=== PATIENT | male | born 1960 | race African-American/Black ===

== ENCOUNTER → 2016-08-26 | Outpatient (CLI) | payer MEDICAID ==
[2016-02-07 23:14] VITALS: BP 153/90
--- NOTE | 2016-08-26 13:08 | RAD ---
History: Left hip pain and frequent falls Study: AP pelvis and frog-leg left hip. Comparison: June 2013 Findings: There is no significant interval change. There is no fracture or dislocation of the hip. T he pubic rami are intact. There is mild hip joint space narrowing and hypertrophy of the collar of t he left femoral neck Impression: Unchanged osteoarthritis, no evidence for fracture Reported By:
== END ==
LOC: RAD 11:52
PROVIDERS: ATTEND Internal Medicine
DX: M25.552 Pain in left hip (principal); M16.12 Unilateral primary osteoarthritis, left hip
CPT/HCPCS: 73501

== ENCOUNTER 2016-10-28 09:04 | Day surgery (SDC) | payer MEDICAID ==
--- NOTE | 2016-10-28 09:40 | DR.UPDATE ---
H&P Update History and Physical Update: History and Physical reviewed and patient examined. Changes noted: NO Yes with the following:Agree with Dr Mcneill's H&P. will perform left hip joint injection. R/B/O discussed with patient and agrees to proceed with hip injection.
[2016-10-28] MEDS: KENALOG INJ 40 MG ONE ×2 (09:45→09:54)
[2016-10-28] MEDS: MARCAINE/EPINEPHRINE ONE ×2 (09:45→09:54)
[2016-10-28] MEDS: XYLOCAINE 1 % (PLAIN) ONE ×2 (09:46→09:54)
[2016-10-28 10:28] VITALS: BP 161/96
== END 2016-10-28 10:28 | disposition home or self-care (01) ==
LOC: SURG1 09:04
PROVIDERS: ATTEND Specialist
PROC: 3E0U33Z Introduction of Anti-inflammatory into Joints, Percutaneous Approach (ICD-10-PCS; 2016-10-28)
PROC: BQ11ZZZ Fluoroscopy of Left Hip (ICD-10-PCS; 2016-10-28)
PROC: 3E0U3BZ Introduction of Anesthetic Agent into Joints, Percutaneous Approach (ICD-10-PCS; principal; 2016-10-28 09:00)
DX: M16.12 Unilateral primary osteoarthritis, left hip (principal)
CPT/HCPCS: 20610; 76000; 77002; A4222; S0020; J2001; J3301

== ENCOUNTER 2016-12-16 11:21 | Day surgery (SDC) | payer MEDICAID ==
[2016-12-16] MEDS ORDERED: KENALOG INJ 40 MG ONE (12:05)
[2016-12-16] MEDS ORDERED: MARCAINE/EPINEPHRINE ONE (12:05)
[2016-12-16] MEDS ORDERED: XYLOCAINE 2 % (PLAIN) ONE (12:05)
--- NOTE | 2016-12-16 12:11 | DR.UPDATE ---
H&P Update History and Physical Update: History and Physical reviewed and patient examined. Yes with the following:Pt presents today s/p l hip injection x 3wks ago with excellent pain relief. Now here for same. Will repeat. See office note for full h&p
[2016-12-16 12:39] VITALS: BP 152/84
== END 2016-12-16 12:32 | disposition home or self-care (01) | DRG 554 ==
LOC: SURG1 11:21
PROVIDERS: ATTEND Specialist
PROC: 3E0U33Z Introduction of Anti-inflammatory into Joints, Percutaneous Approach (ICD-10-PCS; 2016-12-16)
PROC: BQ11ZZZ Fluoroscopy of Left Hip (ICD-10-PCS; 2016-12-16)
PROC: 3E0U3BZ Introduction of Anesthetic Agent into Joints, Percutaneous Approach (ICD-10-PCS; principal; 2016-12-16 12:45)
DX: M16.12 Unilateral primary osteoarthritis, left hip (principal)
CPT/HCPCS: 20610; 77002; S0020; J2001; J3301

== ENCOUNTER 2017-02-24 10:17 | Day surgery (SDC) | payer MEDICAID ==
[2017-02-24] MEDS ORDERED: XYLOCAINE-MPF 1% ONE (10:56)
--- NOTE | 2017-02-24 10:56 | DR.UPDATE ---
H&P Update History and Physical Update: History and Physical reviewed and patient examined. Changes noted: NO Yes with the following:Agree with H&P from Dr Mcneill. will proceed with steroid injection of left hip
[2017-02-24] MEDS ORDERED: KENALOG INJ 40 MG IM ONE (10:57)
[2017-02-24] MEDS ORDERED: MARCAINE 0.5% ONE (10:57)
[2017-02-24 14:35] VITALS: BP 151/95
== END 2017-02-24 11:24 | disposition home or self-care (01) ==
LOC: SURG1 10:17
PROVIDERS: ATTEND Specialist
PROC: 3E0R3BZ Introduction of Anesthetic Agent into Spinal Canal, Percutaneous Approach (ICD-10-PCS; 2017-02-24)
PROC: 3E0R33Z Introduction of Anti-inflammatory into Spinal Canal, Percutaneous Approach (ICD-10-PCS; principal; 2017-02-24 12:00)
DX: M16.12 Unilateral primary osteoarthritis, left hip (principal)
CPT/HCPCS: 76000; S0020; J3301

== ENCOUNTER → 2017-03-14 | Outpatient (CLI) | payer MEDICAID ==
[2017-02-24 14:35] VITALS: BP 151/95
--- NOTE | 2017-03-17 15:02 | RAD ---
HISTORY: Cough, congestion Study: Two views of the chest Comparison: July 05, 2014 Findings: The trachea is midline. The cardiac silhouette is mildly enlarged. Increased perihilar markings and mild bronchial thickening are noted. Hazy opacification within the left lower lobe suggests atelecta sis, infiltrate, and/or effusion. Correlate clinically. IMPRESSION: Mild cardiomegaly. Left basilar airspace disease as noted above. Reported By:
== END | disposition home or self-care (01) ==
LOC: RAD 14:19
PROVIDERS: ATTEND Family Medicine
DX: R91.8 Other nonspecific abnormal finding of lung field (principal); I51.7 Cardiomegaly; J98.4 Other disorders of lung
CPT/HCPCS: 71020

== ENCOUNTER → 2017-05-29 | Outpatient (CLI) | payer MEDICAID ==
--- NOTE | 2017-05-29 20:56 | RAD ---
Examination: Lumbar spine, five views History: Pain in back and hips Findings: Essentially normal curvature, segmentation and alignment. No fracture or subluxation. Disc spaces are preserved. Pedicles and sacroiliac joints are normal. There is contour deformity of the le ft iliac crest consistent with surgical donor site. Impression: No acute or significant lumbar spine findings. Postsurgical changes left ilium. Reported By:
--- NOTE | 2017-05-30 07:19 | RAD ---
Examination: Bilateral hips, two views each History: Low back and bilateral hip pain Comparison 08/26/2016 Findings: Bilateral hip joint space narrowing, left greater than right. Degenerative bone proliferati on at the acetabular margins. No fracture or dislocation identified. There is a surgical defect in th e left iliac crest. Impression: Bilateral hip osteoarthritis, this process somewhat more advanced in the left hip than th e right. No acute component demonstrated. Reported By:
== END ==
LOC: RAD 15:54
PROVIDERS: ATTEND Specialist
DX: M54.89 Other dorsalgia (principal); M16.0 Bilateral primary osteoarthritis of hip
CPT/HCPCS: 72110; 73521

== ENCOUNTER 2017-06-25 12:02 | Day surgery (SDC) | payer MEDICAID ==
--- NOTE | 2017-06-25 12:53 | DR.UPDATE ---
H&P Update History and Physical Update: History and Physical reviewed and patient examined. Changes noted: NO Yes with the following:Agree with H&P from Dr Mcneill. will perform lumbar shannon with flouroscopic guidance
[2017-06-25] MEDS ORDERED: MARCAINE 0.25% INJ ONE (13:11)
[2017-06-25] MEDS ORDERED: KENALOG INJ 40 MG IM ONE (13:11)
[2017-06-25] MEDS ORDERED: XYLOCAINE 1 % (PLAIN) ONE (13:11)
[2017-06-25 13:44] VITALS: BP 138/82
== END 2017-06-25 13:42 | disposition home or self-care (01) | DRG 552 ==
LOC: SURG1 12:02
PROVIDERS: ATTEND Specialist
PROC: 3E0R3BZ Introduction of Anesthetic Agent into Spinal Canal, Percutaneous Approach (ICD-10-PCS; principal; 2017-06-25 12:45)
PROC: 3E0R33Z Introduction of Anti-inflammatory into Spinal Canal, Percutaneous Approach (ICD-10-PCS; principal; 2017-06-25 12:45)
DX: M48.061 Spinal stenosis, lumbar region without neurogenic claudication (principal)
CPT/HCPCS: 62323; 76000; A4222; S0020; J2001; J3301

== ENCOUNTER → 2017-09-11 | Outpatient (CLI) | payer MEDICAID ==
[2017-09-11 14:35] LABS: BASOPHILS # (AUTO) 0.1 X10^3/uL (0.0-0.1); BASOPHILS % (AUTO) 1.1 % (0.2-1.0); EOSINOPHILS # (AUTO) 0.1 x10^3/uL (0.0-0.2); EOSINOPHILS % (AUTO) 2.1 % (0.9-2.9); HEMATOCRIT 43.2 % (42.0-54.0); HEMOGLOBIN 14.5 g/dL (13.5-18.0); MEAN CORPUSCULAR HEMOGLOBIN 27.8 pg (27.0-34.0); MEAN CORPUSCULAR HGB CONC 33.6 g/dL (33.0-35.0); MEAN CORPUSCULAR VOLUME 82.8 fL (80.0-100.0); MEAN PLATELET VOLUME 10.1 fL (7.4-11.0); MONOCYTES # (AUTO) 0.5 x10^3/uL (0.3-0.8); MONOCYTES % (AUTO) 7.5 % (0.0-13.0); NEUTROPHILS # (AUTO) 2.7 x10^3/uL (2.2-4.8); NEUTROPHILS % (AUTO) 42.3 % (42.0-75.0); PLATELET COUNT 292 X10^3/uL (150.0-450.0); RED BLOOD COUNT 5.22 X10^6/uL (4.7-6.0); RED CELL DISTRIBUTION WIDTH 15.7 % (11.6-16.5); WHITE BLOOD COUNT 6.3 X10^3/uL (3.6-10.0)
[2017-09-11 14:36] LABS: BILIRUBIN,URINE NEGATIVE (NEGATIVE); BLOOD/HEMOGLOBIN,URINE 1+ (NEGATIVE); GLUCOSE, URINE NEGATIVE (NEGATIVE); KETONES,URINE NEGATIVE (NEGATIVE); LEUKOCYTE ESTERASE ,URINE NEGATIVE (NEGATIVE); NITRITES,URINE NEGATIVE (NEGATIVE); PROTEIN,URINE NEGATIVE (NEGATIVE); UROBILINOGEN,URINE NORMAL (NORMAL)
[2017-09-11 14:41] LABS: APPEARANCE,URINE CLEAR (CLEAR); BACTERIA,URINE TRACE /HPF (NEGATIVE); COLOR,URINE YELLOW (YELLOW); SQUAMOUS EPITHELIAL CELL,UR FEW /HPF (NEGATIVE)
[2017-09-11 14:42] LABS: MUCUS,URINE FEW /HPF (NEGATIVE)
[2017-09-11 14:43] LABS: ALANINE AMINOTRANSFERASE 84 Units/L (12-78); ALBUMIN 4.3 g/dL (3.4-5.0); ALKALINE PHOSPHATASE 59 Units/L (46-116); ASPARTATE AMINO TRANSFERASE 54 Units/L (15-37); BLOOD UREA NITROGEN 14 mg/dL (7-18); CALCIUM 9.5 mg/dL (8.5-10.1); CARBON DIOXIDE 28.2 mmol/L (21-32); CHLORIDE 105 mmol/L (98-107); CREATININE 0.78 mg/dL (0.70-1.30); SODIUM 141 mmol/L (136-145); TOTAL PROTEIN 8.1 g/dL (6.4-8.2); eGFR BLACK RACES > 60 (>60); eGFR NON BLACK RACES > 60 (>60)
[2017-09-11 15:12] LABS: ERYTHROCYTE SEDIMENTATION RATE 8 MM/HOUR (0-15)
--- NOTE | 2017-09-11 15:16 | RAD ---
HISTORY: Preoperative exam for hip surgery Study: Two views of the chest Comparison: March 14, 2017 Findings: The trachea is midline. The cardiac silhouette is mildly enlarged. The lungs are clear without foca l infiltrate or effusion. IMPRESSION: 1. Mild cardiomegaly. Reported By:
== END ==
LOC: LAB 13:24
PROVIDERS: ATTEND Orthopaedic Surgery
DX: Z01.818 Encounter for other preprocedural examination (principal); Z01.810 Encounter for preprocedural cardiovascular examination; Z01.811 Encounter for preprocedural respiratory examination; Z11.8 Encounter for screening for other infectious and parasitic diseases; Z79.899 Other long term (current) drug therapy; Z79.01 Long term (current) use of anticoagulants; R79.82 Elevated C-reactive protein (CRP); M16.12 Unilateral primary osteoarthritis, left hip
CPT/HCPCS: 36415; 71046; 80053; 81001; 85025; 85610; 85652; 85730; 86140; 86850; 86900; 86901; 87640; 87641; 93005; 93010

== ENCOUNTER 2017-09-15 07:28 | Inpatient (IN) | payer MEDICAID ==
[2017-09-15] MEDS ORDERED: NS 100 ML IV 100 ML IV ONE (07:44)
[2017-09-15] MEDS ORDERED: D5 LR 1000 ML 1,000 ML IV ONE (07:44)
[2017-09-15] MEDS ORDERED: ANCEF VIAL 1 GM ONE (07:45)
[2017-09-15 08:03] VITALS: BMI 29.8
[2017-09-15] MEDS ORDERED: FENTANYL INJ 100 mcg ONE (08:10)
--- NOTE | 2017-09-15 08:24 | RAD ---
Exam: Left hip two views History: 57-year-old male with left hip pain. Comparison: Bilateral hip radiographs 05/29/2017. Findings: AP pelvis and frog-leg lateral view of the left hip were obtained. There is moderate narrowing of the superior aspect of the left hip joint. Marginal osteophyte formati on is noted as well along the acetabular rim. A surgical defect is seen along the left iliac crest. A bone island is identified in the proximal left femur. Radiographic appearance is unchanged dating ba ck to 1014. No acute bony abnormality is seen on this exam. Impression: Moderate degenerative changes are present in the left hip, as described above Reported By:
[2017-09-15] MEDS ORDERED: ADRENALINE CHL INJ ONE ×2 (08:33→11:05)
[2017-09-15] MEDS ORDERED: LR 1000 ML IV 1,000 ML IV ONE ×2 (09:19→14:17)
[2017-09-15] MEDS ORDERED: NS IRRIGATION 3000 ML 3,000 ML with BACITRACIN VIAL 50,000 UNIT, POLYMYXIN B SULFATE 50... IR ONE ×6 (09:30)
[2017-09-15] MEDS ORDERED: NS IRRIGATION 1000 ML 1,000 ML with BACITRACIN VIAL 50,000 UNIT, POLYMYXIN B SULFATE 50... IR ONE ×3 (09:30)
[2017-09-15] MEDS ORDERED: NAROPIN EPIDURAL 0.2% 400 MG, NS 250 ML IV 200 ML EPI PRN ×2 (11:00)
[2017-09-15] MEDS ORDERED: Q PUMP EPI ONE (11:00)
[2017-09-15] MEDS ORDERED: DIPRIVAN VIAL 20 ML ONE (11:05)
[2017-09-15] MEDS ORDERED: MARCAINE 0.25% INJ ONE (11:06)
[2017-09-15] MEDS ORDERED: NS 1000 ML 1,000 ML ONE (11:33)
[2017-09-15] MEDS ORDERED: REGLAN INJ 10 MG VIAL IVP PRN (12:12)
[2017-09-15] MEDS ORDERED: BENADRYL INJ 50 MG VIAL IVP PRN (12:12)
[2017-09-15] MEDS ORDERED: PHENERGAN INJ 25 MG IVP PRN (12:12)
[2017-09-15] MEDS ORDERED: ZOFRAN INJ 4 MG VIAL IVP PRN (12:12)
[2017-09-15] MEDS ORDERED: DILAUDID INJ IVP PRN (12:12)
[2017-09-15] MEDS ORDERED: DIPRIVAN VIAL 40 ML ONE (12:13)
[2017-09-15] MEDS ORDERED: MORPHINE SULFATE PCA 30 MG IV PRN (13:51)
--- NOTE | 2017-09-15 14:43 | RAD ---
History: Postop left hip replacement Study: AP pelvis and cross-table lateral view of the left hip Findings: There is a new total left hip joint prosthesis in good overall position and alignment. Ther e are lateral surgical hima. Impression: Satisfactory postop appearance of the left hip prosthesis Reported By:
[2017-09-15] MEDS: LR 1000 ML IV 1,000 ML IV SCH (15:03)
[2017-09-15] MEDS ORDERED: XYLOCAINE 2 % (PLAIN) ONE (15:09)
[2017-09-15] MEDS ORDERED: EPHEDRINE SULFATE INJ ONE (15:09)
[2017-09-15] MEDS ORDERED: ZOFRAN INJ 4 MG VIAL ONE (15:09)
[2017-09-15] MEDS ORDERED: VERSED ONE (15:09)
[2017-09-15] MEDS ORDERED: DIPRIVAN VIAL ONE (15:09)
--- NOTE | 2017-09-15 16:29 | OR.GENERIC ---
Post-Op Note Generic - Post-Op Note Operative Report: PREOPERATIVE DIAGNOSIS: LEFT hip degenerative arthritis, severe POSTOPERATIVE DIAGNOSIS: LEFT hip degenerative arthritis, severe PROCEDURE PERFORMED: LEFT total hip arthroplasty ANESTHESIA: Epidural BLOOD LOSS: 800 cc. The patient was positioned with the left hip exposed on the pegboard. IMPLANT SPECIFICATION: [place] Accloade femur 3, 127 28 MM, +8 femoral head 52 mm Trident PSL cup E MDM liner 28 mm 48 mm E MDM insert E 20 mm screws 2 GROSS INTRAOPERATIVE FINDINGS: Severe degenerative changes within the femoral head as well as the acetabulum. HISTORY: This is a 57-year-old male with a history of LEFT hip degenerative dysplastic osteoarthritis. he has human immunodeficiency virus. He has tried and failed conservative management. Because of the increased amount of pain as well as severe effect on the activities of daily living and uncontrollable pain with narcotic medication, the patient has elected to undergo the above-named procedure. All risks as well complications were discussed with the patient including but not limited to infection, scar, dislocation, need for further surgery, risk of anesthesia, deep vein thrombosis,fracture, loosening, sciatic nerve injury, neurovascular damage, bleeding, stiffness, persistent pain, limb length discrepancy and implant failure. The patient understood all these risks and was willing to continue further on with the procedure. PROCEDURE:. Patient was brought to the operating room. Spinal epidural was done. patient got appropriate antibiotic. Castro catheter was inserted. patient was positioned with peg board in a RIGHT lateral position. An axillary roll was placed. All the bony prominences were well padded. At this time, the LEFT hip and LEFT lower extremity was then prepped and draped in the usual sterile fashion for this procedure. a posterior approach was then performed. A curvilinear incision placed over the posterior half of trochanter was placed. Dissection carried down through the subcutaneous tissue to expose the TFL and the distal part of the incision. Incision made in the TFL and The G max fibers split along. Charnley retractor applied. Fat pad was elevated with the Ray- Lucy exposing the short external rotators. Inferior and superior sutures with heavy sutures placed in the rotators and the capsule. The short rotators with capsule were taken down with cautery to expose the hip. The hip was dislocated with flexion adduction and internal rotation.as expected severe osteoarthritic changes were seen both on the acetabular as well as femoral side. An neck osteotomy was completed with an oscillating saw. The femoral head was then removed. The acetabulum was exposed after an anterior capsulotomy was done. Retractors were placed anteriorly posteriorly and inferiorly. The floor was identifiable about the deficit. A long-handle knife was used to cut through the remainder of the capsule and remove the labrum around the rim of the acetabulum. With better exposure of the acetabulum , we started reaming the acetabulum. We started with a size #44 and progressively reamed to a size #52. At the size #52 mm reamer, we obtained excellent bony bleeding with good remainder of bone stalk both anteriorly and posteriorly as well as superiorly within the acetabulum. A size 52 mm cup was then implanted with approximately 45 degrees of abduction and 10 to 15 degrees of anteversion dialed in. 2 screws were the placed. At this time, a plastic liner was then inserted for protection. The leg was flexed and abducted and rotated 90 to prepare the femur. A Keller retractor was used to retract the tensor fascia messi and femoral elevator was used to elevate the femur for better exposure and at this time, we began working on the femur. A rongeur was used to lateralize over the greater trochanter. A Box osteotome was used to remove the cancellous portion of the femoral neck. A Charnley awl was then used to cannulate through the proximal femoral canal. A power reamer was then used to ream the lateral aspect of the greater trochanter in order to provide maximal lateralization and prevent varus implantation of our stem. At this time , we began broaching. We started with a size #0 and progressively worked up to a size #3 mm broach. Once the 3 mm broach was inserted in place, it was seated approximately 1 mm above the calcar. A calcar reamer was then placed and the calcar was reamed smoothly. A standard neck as well as a 28 mm plastic head was then placed and a trial reduction was then performed. Once this was performed, the hip was taken to range of motion with external rotation, longitudinal traction as well as flexion and revealed good stability with no impingement or dislocation. At this time, we removed 2 mm broach and proceeded with implanting our polyethylene liner within the acetabulum. This was impacted and placed and checked to assure that it was well seated with no loosening. We copiously irrigated within the canal and then suctioned it dry. At this time, a 2 mm porous proximal collared stem, a femoral component was then impacted in place. The ADM complement was assembled on the back table. The 28 mm +8 neck length cobalt-chrome femoral head was then impacted in place and the Mackay taper assured that this was well fixed . Next, the hip was then reduced within the acetabulum and again we checked range of motion as well as ligamentous stability with gentle traction, external rotation, as well as hip flexion. We were satisfied with components as well as the alignment of the components. Copious irrigation was then used to irrigate the wound. #1 Ethibond was then used to approximate the hip capsule. #1 vicryl in interrupted fashion was used to approximate the vastus lateralis as well as the gluteus medius attachment over the partial gluteus medius attachment which was resected off the greater trochanter. Next, a #1 vicryl was then used to approximate the tensor fascia messi with [id number] closure. A tight closure was performed. Since the patient did have a lot of subcutaneous fat, multiple #2-0 Vicryl sutures were then used to approximate the bed space and then #2-0 Vicryl for the subcutaneous skin. [place] were then used for skin closure. The patients hip was then cleansed. Sterile dressings consisting of were then placed. After the dressing was applied, the patient was extubated safely and transferred to recovery in stable condition. Prognosis is good.
[2017-09-15] MEDS ORDERED: PHENERGAN INJ 25 MG IV PRN (21:20)
[2017-09-15] MEDS: ZOFRAN INJ 4 MG VIAL IVP PRN (21:28)
[2017-09-16] MEDS: LR 1000 ML IV 1,000 ML IV SCH ×3 (02:34→19:54)
[2017-09-16] MEDS: PERCOCET TAB 5/325 MG PO PRN ×5 (04:23→23:33)
[2017-09-16 05:47] LABS: BASOPHILS # (AUTO) 0.1 X10^3/uL (0.0-0.1); BASOPHILS % (AUTO) 0.5 % (0.2-1.0); HEMATOCRIT 33.5 % (42.0-54.0); HEMOGLOBIN 10.9 g/dL (13.5-18.0); LYMPHOCYTES # (AUTO) 1.8 X10^3/uL (1.3-2.9); LYMPHOCYTES % (AUTO) 14.9 % (21.0-51.0); MEAN CORPUSCULAR HEMOGLOBIN 27.4 pg (27.0-34.0); MEAN CORPUSCULAR HGB CONC 32.6 g/dL (33.0-35.0); MEAN CORPUSCULAR VOLUME 84.1 fL (80.0-100.0); MEAN PLATELET VOLUME 10.3 fL (7.4-11.0); MONOCYTES # (AUTO) 0.8 x10^3/uL (0.3-0.8); MONOCYTES % (AUTO) 6.3 % (0.0-13.0); NEUTROPHILS # (AUTO) 9.4 x10^3/uL (2.2-4.8); NEUTROPHILS % (AUTO) 78.3 % (42.0-75.0); PLATELET COUNT 244 X10^3/uL (150.0-450.0); RED BLOOD COUNT 3.98 X10^6/uL (4.7-6.0); RED CELL DISTRIBUTION WIDTH 15.5 % (11.6-16.5)
[2017-09-16 05:58] LABS: BLOOD UREA NITROGEN 7 mg/dL (7-18); CALCIUM 8.6 mg/dL (8.5-10.1); CARBON DIOXIDE 26.5 mmol/L (21-32); CHLORIDE 105 mmol/L (98-107); COR NA(FOR HYPERGLY) 142 mmol/L (136-145); CREATININE 0.77 mg/dL (0.70-1.30); SODIUM 141 mmol/L (136-145); eGFR BLACK RACES > 60 (>60); eGFR NON BLACK RACES > 60 (>60)
[2017-09-16] MEDS ORDERED: COLCRYS TAB 0.6 MG PO PRN (10:02)
[2017-09-16] MEDS ORDERED: HYDROCHLOROTHIAZIDE 12.5 MG CAP PO PRN (10:02)
[2017-09-16] MEDS: VANCOMYCIN HCL 1 GM VIAL 1 GM in D5W 250 ML IV 250 ML IV SCH ×2 (10:30→20:46)
--- NOTE | 2017-09-16 12:54 | PCM.PROG ---
Progress Note - Progress Note for Day of Date: 09/16/17 - Subjective Subjective: IS DAY 1 STATUS POST LEFT TOTAL HIP REPLACEMENT. TODAY, HE IS ALERT AND ORIENTED, LYING IN BED ON MORNING ROUNDS. HE IS NOTED WITH COMPLAINTS OF LEFT HIP PAIN. ON EXAMINATION, HEART IS REGULAR IN RATE AND RHYTHM. BILATERAL LUNGS ARE CLEAR TO AUSCULTATION. ABDOMEN IS ROUND, SOFT, AND NON-TENDER WITH NORMAL BOWEL SOUNDS NOTED IN ALL QUADRANTS. HE IS NOTED WITH A SURGICAL DRESSING TO THE LEFT HIP. NO SIGNS OR SX INFECTION NOTED TO SITE. HIS VITALS THIS MORNING ARE 99.7-85-22-97%-144/68. LABS WERE OBTAINED. WBC IS ELEVATED AT 12.0, RBC 3.98, HGB 10.9, HCT 33.5, GLUCOSE 131. OTHERWISE, HE IS HEMODYNAMICALLY STABLE. CONTINUES TO MONITOR PATIENT AND STARTED HIM ON LOVENOX 40MG SC HS AND VANCOMYCIN 1GM IV Q12H. WE WILL CONTINUE WITH CURRENT PLAN OF CARE AND RESUME HOME MEDICATIONS TODAY. OTHERWISE, WE WILL FOLLOW UP WITH AM LABS AND COTNINUE TO MONITOR PATIENT. - Past Medical Family Social History Past Med/Fam/Surg Hx: No changes since H&P Allergies: Allergies Sulfa (Sulfonamide Antibiotics) [SULFA] Allergy (Verified 06/25/17 12:42) - Review of Systems ROS: No change since H&P - Vital Signs and I&O's Vital Signs: Temperature 99.1 F Pulse Rate [Apical] 80 Pulse Rate 69 Respiratory Rate 19 Blood Pressure [Right Arm] 123/58 Blood Pressure 110/61 O2 Sat by Pulse Oximetry 92 Intake and Output: Intake & Output 09/14/17 09/15/17 09/16/17 09/17/17 11:59 11:59 11:59 11:59 Intake Total 1750 Output Total 7300 1800 Balance -7300 -50 - Physical Exam Oriented: Normal Eyes: Normal Ear: Normal Nose: Normal Throat: Normal Respiratory: Normal Cardiovascular: Normal : Normal Auscultation: Bowel Sounds: Normal Palpation: Normal Tenderness: Normal Skin: Wound (LEFT HIP SURGICAL WOUND ) Musculoskeletal: Left, Hip, Tender, Instability Psychiatric: Normal Mood Description: Calm Speech Pattern: Clear, Appropriate - Laboratory and Diagnostics Result Diagrams: 09/16/17 05:20 09/16/17 05:25 Labs: Laboratory WBC 12.0 X10^3/uL (3.6-10.0) H 09/16/17 05:20 RBC 3.98 X10^6/uL (4.7-6.0) L 09/16/17 05:20 Hgb 10.9 g/dL (13.5-18.0) L 09/16/17 05:20 Hct 33.5 % (42.0-54.0) L 09/16/17 05:20 MCV 84.1 fL (80.0-100.0) 09/16/17 05:20 MCH 27.4 pg (27.0-34.0) 09/16/17 05:20 MCHC 32.6 g/dL (33.0-35.0) L 09/16/17 05:20 RDW 15.5 % (11.6-16.5) 09/16/17 05:20 Plt Count 244 X10^3/uL (150.0-450.0) 09/16/17 05:20 MPV 10.3 fL (7.4-11.0) 09/16/17 05:20 Neut % (Auto) 78.3 % (42.0-75.0) H 09/16/17 05:20 Lymph % (Auto) 14.9 % (21.0-51.0) L 09/16/17 05:20 [place] % (Auto) 6.3 % (0.0-13.0) 09/16/17 05:20 Eos % (Auto) 0.0 % (0.9-2.9) L 09/16/17 05:20 Baso % (Auto) 0.5 % (0.2-1.0) 09/16/17 05:20 Neut # (Auto) 9.4 x10^3/uL (2.2-4.8) H 09/16/17 05:20 Lymph # (Auto) 1.8 X10^3/uL (1.3-2.9) 09/16/17 05:20 [place] # (Auto) 0.8 x10^3/uL (0.3-0.8) 09/16/17 05:20 Eos # (Auto) 0.0 x10^3/uL (0.0-0.2) 09/16/17 05:20 Baso # (Auto) 0.1 X10^3/uL (0.0-0.1) 09/16/17 05:20 Absolute Nucleated RBC 0.0 /100WBC 09/16/17 05:20 Sodium 141 mmol/L (136-145) 09/16/17 05:25 Corrected Sodium 142 mmol/L (136-145) 09/16/17 05:25 Potassium 3.6 mmol/L (3.5-5.1) 09/16/17 05:25 Chloride 105 mmol/L (98-107) 09/16/17 05:25 Carbon Dioxide 26.5 mmol/L (21-32) 09/16/17 05:25 BUN 7 mg/dL (7-18) 09/16/17 05:25 Creatinine 0.77 mg/dL (0.70-1.30) 09/16/17 05:25 Est GFR (MDRD) Af Amer > 60 (>60) 09/16/17 05:25 Est GFR (MDRD) Non-Af > 60 (>60) 09/16/17 05:25 Glucose 131 mg/dL (65-99) H 09/16/17 05:25 Calcium 8.6 mg/dL (8.5-10.1) 09/16/17 05:25 - Plan (1) Status post left hip replacement Status: Acute Plan: PHYSICAL THERAPY, PAIN MANAGEMENT, PROPHYLACTIC ANTIBIOTICS, CONTINUE TO MONITOR
[2017-09-16] MEDS: DOLUTEGRAVIR PO SCH (20:41)
[2017-09-16] MEDS: LAMIVUDI PO SCH (20:41)
[2017-09-16] MEDS: ABACAVIR PO SCH (20:41)
[2017-09-16] MEDS: TRICOR TAB 145 MG PO SCH (20:42)
[2017-09-16] MEDS: NORVASC TAB 10 MG PO SCH (20:43)
[2017-09-16] MEDS: LOVENOX INJ 40 MG SYR SC SCH (20:44)
[2017-09-17 06:00] LABS: BLOOD UREA NITROGEN 8 mg/dL (7-18); CALCIUM 8.8 mg/dL (8.5-10.1); CARBON DIOXIDE 27.5 mmol/L (21-32); CHLORIDE 104 mmol/L (98-107); COR NA(FOR HYPERGLY) 139 mmol/L (136-145); CREATININE 0.76 mg/dL (0.70-1.30); SODIUM 138 mmol/L (136-145); eGFR BLACK RACES > 60 (>60); eGFR NON BLACK RACES > 60 (>60)
[2017-09-17 06:14] LABS: BASOPHILS # (AUTO) 0.1 X10^3/uL (0.0-0.1); BASOPHILS % (AUTO) 0.5 % (0.2-1.0); EOSINOPHILS % (AUTO) 0.1 % (0.9-2.9); HEMATOCRIT 30.5 % (42.0-54.0); HEMOGLOBIN 10.2 g/dL (13.5-18.0); LYMPHOCYTES # (AUTO) 3.3 X10^3/uL (1.3-2.9); LYMPHOCYTES % (AUTO) 26.6 % (21.0-51.0); MEAN CORPUSCULAR HEMOGLOBIN 27.9 pg (27.0-34.0); MEAN CORPUSCULAR HGB CONC 33.5 g/dL (33.0-35.0); MEAN CORPUSCULAR VOLUME 83.4 fL (80.0-100.0); MEAN PLATELET VOLUME 10.7 fL (7.4-11.0); MONOCYTES # (AUTO) 1.3 x10^3/uL (0.3-0.8); MONOCYTES % (AUTO) 10.5 % (0.0-13.0); NEUTROPHILS # (AUTO) 7.7 x10^3/uL (2.2-4.8); NEUTROPHILS % (AUTO) 62.3 % (42.0-75.0); PLATELET COUNT 199 X10^3/uL (150.0-450.0); RED BLOOD COUNT 3.65 X10^6/uL (4.7-6.0); RED CELL DISTRIBUTION WIDTH 15.7 % (11.6-16.5); WHITE BLOOD COUNT 12.3 X10^3/uL (3.6-10.0)
[2017-09-17] MEDS ORDERED: MAGNESIUM SULFATE 1 GM/100 mL PREMIX 1 GM/100 ML BAG IV PRN (06:22)
[2017-09-17] MEDS ORDERED: POTASSIUM CHL 60 MEQ/NS 0.45% 500 ML IV PRN (06:22)
[2017-09-17] MEDS ORDERED: K-LYTE EFFERVESCENT PO PRN (06:22)
[2017-09-17] MEDS ORDERED: POTASSIUM CHLORIDE LIQ 20 MEQ UDC PO PRN (06:22)
[2017-09-17] MEDS ORDERED: POTASSIUM CHL 40 MEQ/NS 0.45% 500 ML IV PRN (06:22)
[2017-09-17] MEDS ORDERED: K-RIDER 10 MEQ/NS 100 ML 10 MEQ/100 ML BAG IV PRN (06:22)
[2017-09-17] MEDS: LR 1000 ML IV 1,000 ML IV SCH ×4 (06:29→20:50)
[2017-09-17] MEDS: ZOFRAN INJ 4 MG VIAL IVP PRN (07:25)
[2017-09-17] MEDS: VANCOMYCIN HCL 1 GM VIAL 1 GM in D5W 250 ML IV 250 ML IV SCH ×2 (08:51→20:53)
[2017-09-17] MEDS: PERCOCET TAB 5/325 MG PO PRN ×2 (10:06→21:38)
[2017-09-17] MEDS: DILAUDID INJ IVP PRN ×2 (12:09→16:15)
--- NOTE | 2017-09-17 15:07 | PCM.PROG ---
Progress Note - Progress Note for Day of Date: 09/17/17 - Subjective Subjective: Mr. BLANK is postoperative day 2 from LEFT total hip arthroplasty. He is doing well. Pain is well controlled. Patient is taking by mouth pain medications. 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 He is alert, in no apparent distress and oriented to time place and person. He is afebrile, vitals stable. He is currently sitting in his recliner chair with an abduction pillow. Patient reports he has been walking today monitoring with the help of physical therapy. Patient is full weightbearing with the help of physical therapy. Surgical dressing clean and dry. No soakage redness induration noted. his chest is clear. Heart rate regular normal with no added sounds. Respiratory system clear no added sounds. Abdomen soft and nontender, no organomegaly.he is currently on LOVENOX 40 daily. He also has bilateral mechanical compression devices and SCDs and NAHUN hose. He is a Medicaid, we will get case management plan his discharge.WE ARE PLANNING ON DISCHARGING HIM TOMORROW. - Past Medical Family Social History Past Med/Fam/Surg Hx: No changes since H&P Allergies: Allergies Sulfa (Sulfonamide Antibiotics) [SULFA] Allergy (Verified 06/25/17 12:42) - Review of Systems ROS: No change since H&P - Vital Signs and I&O's Vital Signs: Temperature 100.1 F Pulse Rate [Right Brachial] 92 Pulse Rate [Apical] 86 Pulse Rate 69 Respiratory Rate 18 Blood Pressure [Right Arm] 139/72 Blood Pressure 110/61 O2 Sat by Pulse Oximetry 96 Intake and Output: Intake & Output 09/15/17 09/16/17 09/17/17 09/18/17 11:59 11:59 11:59 11:59 Intake Total 1750 2610 Output Total 7300 1800 2075 Balance -7300 -50 535 - Physical Exam Oriented: Normal Eyes: Normal Ear: Normal Nose: Normal Throat: Normal Respiratory: Normal Cardiovascular: Normal : Normal Auscultation: Bowel Sounds: Normal Tenderness: Normal Skin: Wound (LEFT HIP SURGICAL WOUND ) Musculoskeletal: Left, Hip, Tender, Instability Psychiatric: Normal Mood Description: Calm Speech Pattern: Clear, Appropriate - Laboratory and Diagnostics Result Diagrams: 09/17/17 04:23 09/17/17 04:23 Labs: Laboratory WBC 12.3 X10^3/uL (3.6-10.0) H 09/17/17 04:23 RBC 3.65 X10^6/uL (4.7-6.0) L 09/17/17 04:23 Hgb 10.2 g/dL (13.5-18.0) L 09/17/17 04:23 Hct 30.5 % (42.0-54.0) L 09/17/17 04:23 MCV 83.4 fL (80.0-100.0) 09/17/17 04:23 MCH 27.9 pg (27.0-34.0) 09/17/17 04:23 MCHC 33.5 g/dL (33.0-35.0) 09/17/17 04:23 RDW 15.7 % (11.6-16.5) 09/17/17 04:23 Plt Count 199 X10^3/uL (150.0-450.0) 09/17/17 04:23 MPV 10.7 fL (7.4-11.0) 09/17/17 04:23 Neut % (Auto) 62.3 % (42.0-75.0) 09/17/17 04:23 Lymph % (Auto) 26.6 % (21.0-51.0) 09/17/17 04:23 [place] % (Auto) 10.5 % (0.0-13.0) 09/17/17 04:23 Eos % (Auto) 0.1 % (0.9-2.9) L 09/17/17 04:23 Baso % (Auto) 0.5 % (0.2-1.0) 09/17/17 04:23 Neut # (Auto) 7.7 x10^3/uL (2.2-4.8) H 09/17/17 04:23 Lymph # (Auto) 3.3 X10^3/uL (1.3-2.9) H 09/17/17 04:23 [place] # (Auto) 1.3 x10^3/uL (0.3-0.8) H 09/17/17 04:23 Eos # (Auto) 0.0 x10^3/uL (0.0-0.2) 09/17/17 04:23 Baso # (Auto) 0.1 X10^3/uL (0.0-0.1) 09/17/17 04:23 Absolute Nucleated RBC 0.0 /100WBC 09/17/17 04:23 Sodium 138 mmol/L (136-145) 09/17/17 04:23 Corrected Sodium 139 mmol/L (136-145) 09/17/17 04:23 Potassium 3.4 mmol/L (3.5-5.1) L 09/17/17 04:23 Chloride 104 mmol/L (98-107) 09/17/17 04:23 Carbon Dioxide 27.5 mmol/L (21-32) 09/17/17 04:23 BUN 8 mg/dL (7-18) 09/17/17 04:23 Creatinine 0.76 mg/dL (0.70-1.30) 09/17/17 04:23 Est GFR (MDRD) Af Amer > 60 (>60) 09/17/17 04:23 Est GFR (MDRD) Non-Af > 60 (>60) 09/17/17 04:23 Glucose 126 mg/dL (65-99) H 09/17/17 04:23 Calcium 8.8 mg/dL (8.5-10.1) 09/17/17 04:23 Magnesium 1.9 mg/dL (1.7-2.9) 09/17/17 04:23 - Plan (1) Status post left hip replacement Status: Acute Plan: 1. PT/OT- WBAT, Hip precautions. 2. plan on discharge tomorrow- case management to help discharge. 3. lovenox and anti dvt as prescibed. 4. pain medications as precribed. 5. fu at 1 week.
--- NOTE | 2017-09-17 16:39 | PCM.PROG ---
Progress Note - Progress Note for Day of Date: 09/17/17 - Subjective Subjective: IS DAY 2 STATUS POST LEFT TOTAL HIP REPLACEMENT. TODAY, HE IS ALERT AND ORIENTED, SITTING UP IN THE RECLINER ON MORNING ROUNDS. HE REPORTS THAT PAIN IS WELL MANAGED WITH ORAL PAIN MEDICATIONS. ON EXAMINATION, HEART IS REGULAR IN RATE AND RHYTHM. BILATERAL LUNGS ARE CLEAR TO AUSCULTATION. ABDOMEN IS ROUND, SOFT, AND NON-TENDER WITH NORMAL BOWEL SOUNDS NOTED IN ALL QUADRANTS. HE IS NOTED WITH A SURGICAL DRESSING TO THE LEFT HIP. NO SIGNS OR SX INFECTION NOTED TO SITE. HIS VITALS THIS MORNING ARE 99.7-89-18-97%-124/70. LABS WERE OBTAINED. WBC 12.3, RBC 3.65, HGB 10.2, HCT 30.5, POTAS. SIUM 3.4, GLUCOSE 126. OTHERWISE, HE IS HEMODYNAMICALLY STABLE. HE CONTINUES TO RECEIVE LOVENOX 40MG SC HS AND VANCOMYCIN 1GM IV Q12H WELL PAIN MEDICATIONS. PHYSICAL THERAPY REPORTS THAT PATIENT IS AMBULATING WELL WITH MINIMAL ASSISTANCE. WE WILL CONTINUE WITH CURRENT PLAN OF CARE TODAY. WE WILL PLAN FOR DISCHARGE TOMORROW. OTHERWISE, WE WILL FOLLOW UP WITH AM LABS AND COTNINUE TO MONITOR PATIENT. - Past Medical Family Social History Past Med/Fam/Surg Hx: No changes since H&P Allergies: Allergies Sulfa (Sulfonamide Antibiotics) [SULFA] Allergy (Verified 06/25/17 12:42) - Review of Systems ROS: No change since H&P - Vital Signs and I&O's Vital Signs: Temperature 100.1 F Pulse Rate [Right Brachial] 92 Pulse Rate [Apical] 86 Pulse Rate 69 Respiratory Rate 18 Blood Pressure [Right Arm] 139/72 Blood Pressure 110/61 O2 Sat by Pulse Oximetry 96 Intake and Output: Intake & Output 09/15/17 09/16/17 09/17/17 09/18/17 11:59 11:59 11:59 11:59 Intake Total 1750 2610 540 Output Total 7300 1800 2075 500 Balance -7300 -50 535 40 - Physical Exam Oriented: Normal Eyes: Normal Ear: Normal Nose: Normal Throat: Normal Respiratory: Normal Cardiovascular: Normal : Normal Auscultation: Bowel Sounds: Normal Palpation: Normal Tenderness: Normal Skin: Wound (LEFT HIP SURGICAL WOUND ) Musculoskeletal: Left, Hip, Tender, Instability Psychiatric: Normal Mood Description: Calm Speech Pattern: Clear, Appropriate - Laboratory and Diagnostics Result Diagrams: 09/17/17 04:23 09/17/17 04:23 Labs: Laboratory WBC 12.3 X10^3/uL (3.6-10.0) H 09/17/17 04:23 RBC 3.65 X10^6/uL (4.7-6.0) L 09/17/17 04:23 Hgb 10.2 g/dL (13.5-18.0) L 09/17/17 04:23 Hct 30.5 % (42.0-54.0) L 09/17/17 04:23 MCV 83.4 fL (80.0-100.0) 09/17/17 04:23 MCH 27.9 pg (27.0-34.0) 09/17/17 04:23 MCHC 33.5 g/dL (33.0-35.0) 09/17/17 04:23 RDW 15.7 % (11.6-16.5) 09/17/17 04:23 Plt Count 199 X10^3/uL (150.0-450.0) 09/17/17 04:23 MPV 10.7 fL (7.4-11.0) 09/17/17 04:23 Neut % (Auto) 62.3 % (42.0-75.0) 09/17/17 04:23 Lymph % (Auto) 26.6 % (21.0-51.0) 09/17/17 04:23 [place] % (Auto) 10.5 % (0.0-13.0) 09/17/17 04:23 Eos % (Auto) 0.1 % (0.9-2.9) L 09/17/17 04:23 Baso % (Auto) 0.5 % (0.2-1.0) 09/17/17 04:23 Neut # (Auto) 7.7 x10^3/uL (2.2-4.8) H 09/17/17 04:23 Lymph # (Auto) 3.3 X10^3/uL (1.3-2.9) H 09/17/17 04:23 [place] # (Auto) 1.3 x10^3/uL (0.3-0.8) H 09/17/17 04:23 Eos # (Auto) 0.0 x10^3/uL (0.0-0.2) 09/17/17 04:23 Baso # (Auto) 0.1 X10^3/uL (0.0-0.1) 09/17/17 04:23 Absolute Nucleated RBC 0.0 /100WBC 09/17/17 04:23 Sodium 138 mmol/L (136-145) 09/17/17 04:23 Corrected Sodium 139 mmol/L (136-145) 09/17/17 04:23 Potassium 3.4 mmol/L (3.5-5.1) L 09/17/17 04:23 Chloride 104 mmol/L (98-107) 09/17/17 04:23 Carbon Dioxide 27.5 mmol/L (21-32) 09/17/17 04:23 BUN 8 mg/dL (7-18) 09/17/17 04:23 Creatinine 0.76 mg/dL (0.70-1.30) 09/17/17 04:23 Est GFR (MDRD) Af Amer > 60 (>60) 09/17/17 04:23 Est GFR (MDRD) Non-Af > 60 (>60) 09/17/17 04:23 Glucose 126 mg/dL (65-99) H 09/17/17 04:23 Calcium 8.8 mg/dL (8.5-10.1) 09/17/17 04:23 Magnesium 1.9 mg/dL (1.7-2.9) 09/17/17 04:23 - Plan (1) Status post left hip replacement Status: Acute Plan: 1. PT/OT- WBAT, Hip precautions. 2. plan on discharge tomorrow- case management to help discharge. 3. lovenox and anti dvt as prescibed. 4. pain medications as precribed. 5. fu at 1 week.
[2017-09-17] MEDS ORDERED: TYLENOL 325 MG TAB PO PRN (19:28)
[2017-09-17] MEDS: ABACAVIR PO SCH (20:50)
[2017-09-17] MEDS: LAMIVUDI PO SCH (20:50)
[2017-09-17] MEDS: DOLUTEGRAVIR PO SCH (20:50)
[2017-09-17] MEDS: NORVASC TAB 10 MG PO SCH (20:51)
[2017-09-17] MEDS: TRICOR TAB 145 MG PO SCH (20:53)
[2017-09-17] MEDS: LOVENOX INJ 40 MG SYR SC SCH (21:02)
[2017-09-18 06:53] LABS: BLOOD UREA NITROGEN 9 mg/dL (7-18); CALCIUM 8.9 mg/dL (8.5-10.1); CARBON DIOXIDE 27.5 mmol/L (21-32); CHLORIDE 103 mmol/L (98-107); CREATININE 1.11 mg/dL (0.70-1.30); SODIUM 139 mmol/L (136-145); eGFR BLACK RACES > 60 (>60); eGFR NON BLACK RACES > 60 (>60)
[2017-09-18 07:26] LABS: BASOPHILS # (AUTO) 0.1 X10^3/uL (0.0-0.1); BASOPHILS % (AUTO) 0.5 % (0.2-1.0); EOSINOPHILS # (AUTO) 0.1 x10^3/uL (0.0-0.2); EOSINOPHILS % (AUTO) 0.9 % (0.9-2.9); HEMATOCRIT 28.7 % (42.0-54.0); HEMOGLOBIN 9.8 g/dL (13.5-18.0); LYMPHOCYTES % (AUTO) 18.3 % (21.0-51.0); MEAN CORPUSCULAR HEMOGLOBIN 28.1 pg (27.0-34.0); MEAN CORPUSCULAR HGB CONC 34.1 g/dL (33.0-35.0); MEAN CORPUSCULAR VOLUME 82.4 fL (80.0-100.0); MEAN PLATELET VOLUME 9.7 fL (7.4-11.0); NEUTROPHILS # (AUTO) 7.6 x10^3/uL (2.2-4.8); NEUTROPHILS % (AUTO) 71.3 % (42.0-75.0); PLATELET COUNT 212 X10^3/uL (150.0-450.0); RED BLOOD COUNT 3.48 X10^6/uL (4.7-6.0); RED CELL DISTRIBUTION WIDTH 15.4 % (11.6-16.5); WHITE BLOOD COUNT 10.7 X10^3/uL (3.6-10.0)
[2017-09-18] MEDS: PERCOCET TAB 5/325 MG PO PRN ×3 (07:36→23:34)
[2017-09-18 09:10] LABS: CREATININE 1.52 mg/dL (0.70-1.30); VANCOMYCIN,TROUGH 9.1 ug/mL (15-20)
[2017-09-18] MEDS: VANCOMYCIN HCL 1 GM VIAL 1 GM in D5W 250 ML IV 250 ML IV SCH ×2 (09:47→23:30)
[2017-09-18] MEDS: LR 1000 ML IV 1,000 ML IV SCH ×2 (10:05→21:39)
[2017-09-18] MEDS ORDERED: MILK OF MAGNESIA PO PRN (15:59)
[2017-09-18] MEDS ORDERED: COLACE CAP 100 MG PO PRN (15:59)
[2017-09-18] MEDS: ABACAVIR PO SCH (21:37)
[2017-09-18] MEDS: LAMIVUDI PO SCH (21:37)
[2017-09-18] MEDS: DOLUTEGRAVIR PO SCH (21:37)
[2017-09-18] MEDS: LOVENOX INJ 40 MG SYR SC SCH (21:38)
[2017-09-18] MEDS: NORVASC TAB 10 MG PO SCH (21:39)
[2017-09-18] MEDS: TRICOR TAB 145 MG PO SCH (21:40)
[2017-09-18 23:42] LABS: BILIRUBIN,URINE NEGATIVE (NEGATIVE); BLOOD/HEMOGLOBIN,URINE 2+ (NEGATIVE); GLUCOSE, URINE NEGATIVE (NEGATIVE); KETONES,URINE NEGATIVE (NEGATIVE); LEUKOCYTE ESTERASE ,URINE NEGATIVE (NEGATIVE); NITRITES,URINE NEGATIVE (NEGATIVE); PROTEIN,URINE 1+ (NEGATIVE); UROBILINOGEN,URINE NORMAL (NORMAL)
[2017-09-19 00:22] LABS: APPEARANCE,URINE CLEAR (CLEAR); COLOR,URINE YELLOW (YELLOW)
[2017-09-19 00:23] LABS: BACTERIA,URINE NEGATIVE /HPF (NEGATIVE); RBC,URINE 0-2 /HPF (NONE SEEN); SQUAMOUS EPITHELIAL CELL,UR RARE /HPF (NEGATIVE)
[2017-09-19 06:19] LABS: BASOPHILS % (AUTO) 0.4 % (0.2-1.0); EOSINOPHILS # (AUTO) 0.2 x10^3/uL (0.0-0.2); HEMATOCRIT 26.4 % (42.0-54.0); LYMPHOCYTES # (AUTO) 2.3 X10^3/uL (1.3-2.9); LYMPHOCYTES % (AUTO) 23.3 % (21.0-51.0); MEAN CORPUSCULAR HEMOGLOBIN 28.4 pg (27.0-34.0); MEAN CORPUSCULAR HGB CONC 34.2 g/dL (33.0-35.0); MEAN CORPUSCULAR VOLUME 82.9 fL (80.0-100.0); MEAN PLATELET VOLUME 10.3 fL (7.4-11.0); MONOCYTES # (AUTO) 0.8 x10^3/uL (0.3-0.8); MONOCYTES % (AUTO) 8.5 % (0.0-13.0); NEUTROPHILS # (AUTO) 6.6 x10^3/uL (2.2-4.8); NEUTROPHILS % (AUTO) 65.8 % (42.0-75.0); PLATELET COUNT 263 X10^3/uL (150.0-450.0); RED BLOOD COUNT 3.19 X10^6/uL (4.7-6.0); RED CELL DISTRIBUTION WIDTH 15.5 % (11.6-16.5)
[2017-09-19 06:36] LABS: CALCIUM 8.9 mg/dL (8.5-10.1); CARBON DIOXIDE 26.6 mmol/L (21-32); CREATININE 1.61 mg/dL (0.70-1.30)
[2017-09-19] MEDS: VANCOMYCIN HCL 1 GM VIAL 1 GM in D5W 250 ML IV 250 ML IV SCH (08:38)
[2017-09-19 13:09] VITALS: BP 132/74
== END 2017-09-19 12:30 | disposition home or self-care (01) | DRG 470 ==
LOC: MED/SURG 07:28 → ICU 14:36 → MED/SURG 09-16 11:55
PROVIDERS: ADMIT Orthopaedic Surgery; ATTEND Internal Medicine
PROC: 0SRB02A Replacement of Left Hip Joint with Metal on Polyethylene Synthetic Substitute, Uncemented, Open Approach (ICD-10-PCS; principal; 2017-09-15 08:30)
DX: M16.12 Unilateral primary osteoarthritis, left hip (principal); I10 Essential (primary) hypertension; R26.89 Other abnormalities of gait and mobility; I95.89 Other hypotension; M25.552 Pain in left hip
CPT/HCPCS: 36415; 73501; 80048; 80202; 81001; 82565; 83735; 84132; 85025; 87040; 97535; A4216; A4222; S0020; J0170; J0690; J1170; J1650; J2001; J2250; J2271; J2405; J2550; J3010; J3370; J3490; J7120

== ENCOUNTER 2021-08-13 | Observation (INO) ==
[2021-08-13 00:14] VITALS: BMI 33.2
--- NOTE | 2021-08-13 00:21 | DR.ABDMALE ---
HPI Time seen Time Seen by Provider: 08/13/21 00:17 PCP Primary Care Physician: jaquelin Complaint Chief Complaint Doctors Comments: 61 y/o male presents to the ER c/o upper abdominal pain. Started about 12 hours ago, shortly after eating a large lunch. Calmed down for a few hours, then returned this evening after eating some chicken soup. Pt is sharp, severe, located across the upper abdomen. Does not radiate. Nothing makes it better, nothing makes it worse. Associated with nausea. Unable to vomit or move his bowels. Chief Complaint:: pt ambulated to er using his home walker. pt c/o epigastric pain since eating lunch yesterday at 12 noon. pt took pepto and maalox without any relief COVID-19 Coronavirus risk:travel/contact w/high risk person: No Has patient experienced Coronavirus symptoms: No Reviewed Nurses Notes Review: Yes Mode of arrival Mode of Arrival: Ambulatory Timing Onset of Chief Complaint: 08/12/21 Came on: Suddenly Duration Duration: Intermittent Duration: Hours (12) PMH PMH Past Medical History: Yes Past Medical History: GERD, Gout and Hypertension Past Medical History Comment: HIV POSITIVE Past Surgical History: Yes Surgical History: Ortho Surgery and Other Family History History of Family Medical Conditions: Yes Family Medical History: Hypertension Social History Does patient currently use any type of tobacco product: No Have you used tobacco products in the last 12 months: No Does any household member use tobacco: No Alcohol Use: Occasionally Do you use any recreational Drugs:: No Lives With: Significant Other Lives Where: Home Travel Risk Coronavirus risk:travel/contact w/high risk person: No Has patient experienced Coronavirus symptoms: No Infectious screening In the last 2 months have you had wt loss of >10#?: NO Have you had fever, night sweats or hemotysis?: No Have you traveled outside the country in the last 6 months?: No Isolation: Standard ROS Review of Systems Constitutional: No Symptoms Reported Eyes: No Symptoms Reported ENTM: No Symptoms Reported Respiratoy: No Symptoms Reported Cardiovascular: No Symptoms Reported Gastrointestinal/Abdominal: Abdominal Pain and Nausea Genitourinary: No Symptoms Reported Neurological: No Symptoms Reported Musculoskeletal: No Symptoms Reported Integumentary: No Symptoms Reported Hematologic/Lymphatic: No Symptoms Reported Psychiatric: No Symptoms Reported All Other Systems: Reviewed and Negative PE Vital Signs Vital Signs: Temp Pulse Pulse Resp BP BP Pulse Ox 08/13/21 08:00 97.8 F 60 18 148/83 99 08/13/21 04:02 63 18 139/82 100 08/13/21 01:39 18 08/13/21 01:12 18 08/13/21 00:42 18 08/13/21 00:39 18 08/13/21 00:02 98.4 F 79 18 191/88 99 04/17/20 18:00 160/108 09/19/17 12:00 132/74 General Limitations: No Limitations General Appearance: Alert and In Distress Eyes Eye exam: PERRL and EOMI ENT ENT Exam: Mucous Membranes Moist Neck Neck Exam: Normal Inspection Chest Chest Inspection: Normal Inspection Respiratory Respiratory Exam: Normal Lung Sounds Bilat; negative Accessory Muscle Use and Respiratory Distress Respiratory Exam: Bilateral: Clear to Auscultation Cardiovascular Cardiovascular Exam: Regular Rate, Normal Rhythm and Irregular Rhythm Abdominal Exam Abdominal Exam: Soft and Tenderness (RUQ/epigastric region, with guarding.) Extremeties Extremities Exam: Normal Inspection; negative Edema Neurologic Neurological Exam: Alert, Oriented X3 and CN II-XII Intact; negative Motor Sensory Deficit Psychiatric Psychiatric Exam: Anxious Skin Skin Exam: Warm and Dry MDM Differential Diagnosis Differential Diagnosis: Bowel Obstruction, Cholangitis, Cholcystitis, Diverticular disease, Gastritus/PUD and Pancreatitis COURSE Treatment Treatment: 61 y/o male with persistent upper abdominal pain over the past 12 hours. W/u iniitated. Pt given IV fluids, IV protonix/zofran/morphine and a GI cocktail. 0134 - Acue abdomen series unremarkable. CBC normal. CMP wtih marked elevated liver enzymes - AST 1145, ALT 660. T Bili a bit elevated at 1.2, as is alk phos of 200. Pt feeling markedly better after medications given. Will pursue CT of the abd/pelvis with IV contrast. 0400 - CT abd/pelvis reported as having hepatic steatosis (has a h/o), and an incidental 94% blockage of his left proximal ileac artery, with a normal appearing GB per radiology. GB appears to have rounded density of proximal GB to me, on all tissue planes. 0716 - radiology re-read CT, agreed there is a soft tissue density of the GB, will pursue US. 0743 - GB US with > 3 cm stone, with + Millard's sign, concerning for cholecystitis, but no surrounding fluid, no enlarged ducts. Discussed with surgery, Dr Shaw. He will be glad to admit the pt and remove his GB today. Can also address his L iliac stenosis. 0754 - pt agrees to admission. ROR Labs Reviewed Laboratory Results Reviewed?: Yes Result Diagrams: 08/13/21 00:38 03 00:38 Laboratory: WBC 6.8 X10^3/uL (3.6-10.0) 08/13/21 00:38 RBC 4.65 X10^6/uL (4.7-6.0) L 08/13/21 00:38 Hgb 13.7 g/dL (13.5-18.0) 08/13/21 00:38 Hct 40.8 % (42.0-54.0) L 08/13/21 00:38 MCV 87.6 fL (80.0-100.0) 08/13/21 00:38 MCH 29.5 pg (27.0-34.0) 08/13/21 00:38 MCHC 33.6 g/dL (33.0-35.0) 08/13/21 00:38 RDW 15.1 % (11.6-16.5) 08/13/21 00:38 Plt Count 331 X10^3/uL (150.0-450.0) 08/13/21 00:38 MPV 9.6 fL (7.4-11.0) 08/13/21 00:38 Neut % (Auto) 53.0 % (42.0-75.0) 08/13/21 00:38 Lymph % (Auto) 37.0 % (21.0-51.0) 08/13/21 00:38 [place] % (Auto) 8.3 % (0.0-13.0) 08/13/21 00:38 Eos % (Auto) 1.2 % (0.9-2.9) 08/13/21 00:38 Baso % (Auto) 0.5 % (0.2-1.0) 08/13/21 00:38 Neut # (Auto) 3.6 x10^3/uL (2.2-4.8) 08/13/21 00:38 Lymph # (Auto) 2.5 X10^3/uL (1.3-2.9) 08/13/21 00:38 [place] # (Auto) 0.6 x10^3/uL (0.3-0.8) 08/13/21 00:38 Eos # (Auto) 0.1 x10^3/uL (0.0-0.2) 08/13/21 00:38 Baso # (Auto) 0.0 X10^3/uL (0.0-0.1) 08/13/21 00:38 Absolute Nucleated RBC 0.1 /100WBC 08/13/21 00:38 Sodium 139 mmol/L (136-145) 08/13/21 00:38 Corrected Sodium 139 mmol/L (136-145) 08/13/21 00:38 Potassium 3.7 mmol/L (3.5-5.1) 08/13/21 00:38 Chloride 103 mmol/L (98-107) 08/13/21 00:38 Carbon Dioxide 26.6 mmol/L (21-32) 08/13/21 00:38 BUN 25 mg/dL (7-18) H 08/13/21 00:38 Creatinine 1.11 mg/dL (0.70-1.30) 08/13/21 00:38 Est GFR (MDRD) Af Amer > 60 (>60) 08/13/21 00:38 Est GFR (MDRD) Non-Af > 60 (>60) 08/13/21 00:38 Glucose 120 mg/dL (65-99) H 08/13/21 00:38 Calcium 9.3 mg/dL (8.5-10.1) 08/13/21 00:38 Corrected Calcium TNP 08/13/21 00:38 Total Bilirubin 1.20 mg/dL (0.2-1.0) H 08/13/21 00:38 AST 1145 Units/L (15-37) H 08/13/21 00:38 ALT 660 Units/L (12-78) H 08/13/21 00:38 Alkaline Phosphatase 200 Units/L (46-116) H 08/13/21 00:38 Total Protein 7.6 g/dL (6.4-8.2) 08/13/21 00:38 Albumin 3.7 g/dL (3.4-5.0) 08/13/21 00:38 Globulin 3.9 g/dL (2.5-4.5) 08/13/21 00:38 Albumin/Globulin Ratio 0.9 Ratio (1.1-2.1) L 08/13/21 00:38 Lipase 394 Units/L (73-393) H 08/13/21 00:38 Other Results Comments: + elevated liver enzymes XRAY XRAY Interpreted by: Self X-ray Results: No acute abnormalities on acute abd series - no free air, no signs for obstruction. Opioid Opioid Risk Tool Age (Nicholas box if 16-45): No History of Preadolescent Sexual Abuse: No Total: 0 Total Score Risk Category: Low Risk Copyright: Mani GOODSON predicting aberrant behaviors Diagnosis Discharge Problem: Acute cholecystitis, Stenosis of left iliac artery, Elevated liver enzymes
[2021-08-13] MEDS ORDERED: ZOFRAN INJ 4 MG VIAL IVP ONE (00:24)
[2021-08-13] MEDS ORDERED: MORPHINE SULFATE INJ 4 MG IVP ONE (00:24)
[2021-08-13] MEDS ORDERED: NS 1,000 ML IV 1,000 ML IV ONE (00:24)
[2021-08-13] MEDS ORDERED: LEVSIN/MAALOX/LIDOC VISC PO ONE (00:24)
[2021-08-13] MEDS ORDERED: PROTONIX INJ 40 MG VIAL IVP ONE (00:24)
[2021-08-13] MEDS ORDERED: ZOFRAN INJ 4 MG VIAL ONE ×2 (00:32→10:48)
[2021-08-13] MEDS ORDERED: NS 1,000 ML IV 1,000 ML ONE (00:32)
[2021-08-13] MEDS ORDERED: MORPHINE SULFATE INJ 4 MG ONE (00:32)
[2021-08-13] MEDS ORDERED: LEVSIN/MAALOX/LIDOC VISC ONE (00:32)
[2021-08-13] MEDS ORDERED: PROTONIX INJ 40 MG VIAL ONE (00:41)
[2021-08-13 01:13] LABS: BASOPHILS % (AUTO) 0.5 % (0.2-1.0); EOSINOPHILS # (AUTO) 0.1 x10^3/uL (0.0-0.2); EOSINOPHILS % (AUTO) 1.2 % (0.9-2.9); HEMATOCRIT 40.8 % (42.0-54.0); HEMOGLOBIN 13.7 g/dL (13.5-18.0); LYMPHOCYTES # (AUTO) 2.5 X10^3/uL (1.3-2.9); MEAN CORPUSCULAR HEMOGLOBIN 29.5 pg (27.0-34.0); MEAN CORPUSCULAR HGB CONC 33.6 g/dL (33.0-35.0); MEAN CORPUSCULAR VOLUME 87.6 fL (80.0-100.0); MEAN PLATELET VOLUME 9.6 fL (7.4-11.0); MONOCYTES # (AUTO) 0.6 x10^3/uL (0.3-0.8); MONOCYTES % (AUTO) 8.3 % (0.0-13.0); NEUTROPHILS # (AUTO) 3.6 x10^3/uL (2.2-4.8); RED BLOOD COUNT 4.65 X10^6/uL (4.7-6.0); RED CELL DISTRIBUTION WIDTH 15.1 % (11.6-16.5); WHITE BLOOD COUNT 6.8 X10^3/uL (3.6-10.0)
[2021-08-13 01:19] LABS: ALANINE AMINOTRANSFERASE 660 Units/L (12-78); ALBUMIN 3.7 g/dL (3.4-5.0); ALKALINE PHOSPHATASE 200 Units/L (46-116); BLOOD UREA NITROGEN 25 mg/dL (7-18); CALCIUM 9.3 mg/dL (8.5-10.1); CARBON DIOXIDE 26.6 mmol/L (21-32); CHLORIDE 103 mmol/L (98-107); COR NA(FOR HYPERGLY) 139 mmol/L (136-145); CREATININE 1.11 mg/dL (0.70-1.30); LIPASE 394 Units/L (73-393); SODIUM 139 mmol/L (136-145); TOTAL PROTEIN 7.6 g/dL (6.4-8.2); eGFR NON BLACK RACES > 60 (>60)
[2021-08-13 01:20] LABS: ASPARTATE AMINO TRANSFERASE 1145 Units/L (15-37)
[2021-08-13] MEDS ORDERED: NS 100 ML IV 100 ML ONE ×2 (02:44→10:50)
--- NOTE | 2021-08-13 03:37 | CT ---
STUDY: CT ABDOMEN AND PELVIS WITH IV CONTRASTCOMPARISON: NoneTECHNIQUE: Axial images were acquired of the abdomen and pelvis with IV contrast. Sagittal and coronal reformatted images were provided. All images were reviewed in a variety of windows and levels.RADIATION REDUCTION TECHNIQUE: Automated exposure control, adjustment of the mA and/or kV according to patient size, or iterative reconstruction techniques were used.HISTORY: UPPER ABD PAIN, ELEVATED LIVER ENZYMESFINDINGS:LOWER THORAX: The visualized lower lung zones are clear. The heart size is within normal limits. There is no evidence of a pericardial effusion.LIVER: No intrahepatic focal lesions are seen. No evidence of intrahepatic or extrahepatic duct dilation. Steatosis is noted.GALLBLADDER: The gallbladder is unremarkable.SPLEEN: The spleen enhances homogenously and is unremarkable.PANCREAS: The pancreas enhances homogenously and is unremarkable.AGRENAL GLANDS: The adrenal glands enhance homogenously and are unremarkable.: The kidneys enhance homogenously. Their collecting system is of normal caliber.URINARY BLADDER: The urinary bladder is unremarkable. There are no soft tissue masses seen in the urinary bladder.VESSELS: The abdominal aorta is normal in size without evidence of aneurysm or dissection. The celiac artery, superior mesenteric artery, [place] renal arteries, and inferior mesenteric artery are patent. 90 percent sub cm stenosis is present in the proximal segment of the left common iliac artery.GI: The stomach and small bowel is unremarkable. Few scattered diverticula are seen without evidence of diverticulitis. There are no inflammatory changes seen in the right lower quadrant to suggest secondary signs of acute appendicitis. The appendix is normal.LYMPHNODES AND MESSENTERY: There is no evidence of retroperitoneal lymphadenopathy.BONES: The visualized bones demonstrate degenerative changes. There are no concerning lytic or blastic lesions identified. Status post left hip arthroplasty. This is seen causing beam hardening artifact.IMPRESSION:- Steatosis is noted- There is a focal high grade 94 percent sub cm stenosis in the proximal segment of the left common iliac artery.- Status post left hip arthroplasty- The appendix is normal- No evidence of obstructive uropathyElectronically signed by: Elmer Shook (Aug 13, 2021 03:36:32)
--- NOTE | 2021-08-13 06:17 | RAD ---
STUDY: ACUTE ABDOMEN SERIESCOMPARISON: NoneHISTORY: PT C/O UPPER ABD PAINFINDINGS:CHEST:There is no focal consolidation seen.The heart size is normal.The mediastinum is unremarkable.There is no evidence of pleural effusion or gross pneumothorax.ABDOMEN:The bowel gas pattern is nonobstructive.There is no gross evidence of free air.There are no abnormal masses or calcification seen.The visualized bones are unremarkable.IMPRESSION:1. THE LUNGS ARE CLEAR AND THE HEART SIZE IS NORMAL.2. THE BOWEL GAS PATTERN IS NONOBSTRUCTIVE. Electronically signed by: Elmer Shook (Aug 13, 2021 06:16:53)
--- NOTE | 2021-08-13 07:36 | US ---
HISTORYRUQ PAIN, ABNORMAL LFT'SSTUDYGALL BLADDERCOMPARISONCT abdomen and pelvis 08/13/2021.TECHNIQUERight upper quadrant ultrasound.FINDINGSThe liver appears echogenic. The right lobe measures up to 17.3 cm. Portal vein has hepatopetal flow. Hepatic artery is patent. Hepatic vein has hepatofugal flow. Cholelithiasis measuring up to 3.2 cm. Positive Millard sign reported by technologist. Gallbladder wall thickness is normal at 2 mm. No definite pericholecystic fluid. Common duct normal at 3 mm. The right kidney measures up to 13.8 cm in length with normal cortical thickness. No obvious renal mass, stone or hydronephrosis. Calculus seen on CT in the right lower pole is not well visualized sonographically. IVC is patent proximally. Pancreas appears normal in its visualized portion.IMPRESSIONCholelithiasis with positive sonographic Millard sign is suspicious for acute cholecystitis in the right clinical setting. Consider HIDA scan for further evaluation as clinically warranted.Echogenic liver consistent with parenchymal disease such as hepatic steatosis.Electronically signed by: Demond Wei (Aug 13, 2021 07:35:47)
[2021-08-13] MEDS ORDERED: XYLOCAINE 2 % (PLAIN) ONE (08:19)
[2021-08-13] MEDS ORDERED: ULTANE GAS IN ONE ×2 (08:19→10:59)
[2021-08-13] MEDS ORDERED: D5 1/2 NS 1,000 ML 1,000 ML IV SCH (09:07)
[2021-08-13] MEDS ORDERED: ZOSYN VIAL 3.375 GRAMS 3.375 G in NS 100 ML IV 100 ML IV SCH (09:07)
[2021-08-13] MEDS ORDERED: MARCAINE 0.5% ONE (10:04)
--- NOTE | 2021-08-13 10:05 | DR.H&P ---
H&P History & Physical for Day of: H&P Date: 08/13/21 Chief Complaint Chief Complaint: 61 year old male who presented with acute onset of right upper quadrant pain. He had been diagnosed with reflux approximately 1 1/[address] scan suggested a mass in the gallbladder. Ultrasound was done with the possible diagnosis of cholelithiasis and acute cholecystitis with elevation of liver function tests. Total bilirubin is 1. 2 and alkaline phosphatase is normal. Other liver function test elevated. The patient has been having several month history of left leg pain. Presume to be do to post-operative pain after left hip replacement. His CT scan shows greater than 90% stenosis of the left common iliac artery . Allergies Allergies Allergy/AdvReac Type Severity Reaction Status Date / Time Sulfa (Sulfonamide Allergy Verified 04/17/20 17:45 Antibiotics) [SULFA] History of Present Illness History of Present Illness: see above Past Medical History Past Medical History: GERD, Gout and Hypertension Past Surgical History Surgical History: Ortho Surgery (left hip replacement ) and Other Family History Family Medical History: Hypertension Social History Does patient currently use any type of tobacco product: No Have you used tobacco products in the last 12 months: No Does any household member use tobacco: No Alcohol Use: None and Occasionally Prescription drug monitoring program results: PDMP reviewed and no concerns identified Medications Home Medications: Sulfa (Sulfonamide Antibiotics) [SULFA] Allergy (Verified 04/17/20 17:45) CONTINUE taking the following medications chlorthalidone 50 mg PO DAILY 08/13/21 [History] olmesartan [Benicar] 40 mg PO DAILY 08/13/21 [History] Labs Result Diagrams: 08/13/21 00:38 08/13/21 00:38 Labs: Laboratory WBC 6.8 X10^3/uL (3.6-10.0) 08/13/21 00:38 RBC 4.65 X10^6/uL (4.7-6.0) L 08/13/21 00:38 Hgb 13.7 g/dL (13.5-18.0) 08/13/21 00:38 Hct 40.8 % (42.0-54.0) L 08/13/21 00:38 MCV 87.6 fL (80.0-100.0) 08/13/21 00:38 MCH 29.5 pg (27.0-34.0) 03/28/22 00:38 MCHC 33.6 g/dL (33.0-35.0) 08/13/21 00:38 RDW 15.1 % (11.6-16.5) 08/13/21 00:38 Plt Count 331 X10^3/uL (150.0-450.0) 08/13/21 00:38 MPV 9.6 fL (7.4-11.0) 08/13/21 00:38 Neut % (Auto) 53.0 % (42.0-75.0) 08/13/21 00:38 Lymph % (Auto) 37.0 % (21.0-51.0) 08/13/21 00:38 [place] % (Auto) 8.3 % (0.0-13.0) 08/13/21 00:38 Eos % (Auto) 1.2 % (0.9-2.9) 08/13/21 00:38 Baso % (Auto) 0.5 % (0.2-1.0) 08/13/21 00:38 Neut # (Auto) 3.6 x10^3/uL (2.2-4.8) 08/13/21 00:38 Lymph # (Auto) 2.5 X10^3/uL (1.3-2.9) 08/13/21 00:38 [place] # (Auto) 0.6 x10^3/uL (0.3-0.8) 08/13/21 00:38 Eos # (Auto) 0.1 x10^3/uL (0.0-0.2) 08/13/21 00:38 Baso # (Auto) 0.0 X10^3/uL (0.0-0.1) 08/13/21 00:38 Absolute Nucleated RBC 0.1 /100WBC 08/13/21 00:38 Sodium 139 mmol/L (136-145) 08/13/21 00:38 Corrected Sodium 139 mmol/L (136-145) 08/13/21 00:38 Potassium 3.7 mmol/L (3.5-5.1) 08/13/21 00:38 Chloride 103 mmol/L (98-107) 08/13/21 00:38 Carbon Dioxide 26.6 mmol/L (21-32) 08/13/21 00:38 BUN 25 mg/dL (7-18) H 08/13/21 00:38 Creatinine 1.11 mg/dL (0.70-1.30) 08/13/21 00:38 Est GFR (MDRD) Af Amer > 60 (>60) 08/13/21 00:38 Est GFR (MDRD) Non-Af > 60 (>60) 08/13/21 00:38 Glucose 120 mg/dL (65-99) H 08/13/21 00:38 Calcium 9.3 mg/dL (8.5-10.1) 08/13/21 00:38 Corrected Calcium TNP 08/13/21 00:38 Total Bilirubin 1.20 mg/dL (0.2-1.0) H 08/13/21 00:38 AST 1145 Units/L (15-37) H 08/13/21 00:38 ALT 660 Units/L (12-78) H 08/13/21 00:38 Alkaline Phosphatase 200 Units/L (46-116) H 08/13/21 00:38 Total Protein 7.6 g/dL (6.4-8.2) 08/13/21 00:38 Albumin 3.7 g/dL (3.4-5.0) 08/13/21 00:38 Globulin 3.9 g/dL (2.5-4.5) 08/13/21 00:38 Albumin/Globulin Ratio 0.9 Ratio (1.1-2.1) L 08/13/21 00:38 Lipase 394 Units/L (73-393) H 08/13/21 00:38 SARS CoV-2 RNA Rapid RAYNE Negative (NEGATIVE) 08/13/21 08:01 Review of Systems Constitutional: See HPI Eyes: No Symptoms Reported ENT: No Symptoms Reported Respiratory: No Symptoms Reported Cardiovascular: No Symptoms Reported Gastrointestinal: See HPI Genitourinary: No Symptoms Reported Musculoskeletal: No Symptoms Reported Skin: No Symptoms Reported Neurological: No Symptoms Reported Physical Exam Vital Signs: Temperature 97.8 F Pulse Rate [Bilateral Radial] 60 Pulse Rate 79 Respiratory Rate 18 Blood Pressure [Right Arm] 148/83 Blood Pressure 191/88 O2 Sat by Pulse Oximetry 99 Oriented: Normal, Time, Person and Place Eyes: Normal Ear: Normal Nose: Normal Throat: Normal Respiratory: Clear Throughout Cardiovascular: Normal and Other (Absent pulse in the left groin compared to the right. No wounds of the left leg. ) : Normal Auscultation: Bowel Sounds: Normal Tenderness: RUQ (moderately tender to palpation) Skin: Normal Musculoskeletal: Normal Psychiatric: Normal Mood Description: Anxious Affect: Normal Speech Pattern: Clear Assessment/Plan (1) Acute cholecystitis: Status: Acute Plan: Will plan laparoscopic cholecystectomy today. Risk and benefits discussed with the patient to include bleeding, infection, and bile duct injury . In over 2,000 cases I have had one bowel duct injury. There is approximately a 1% chance of converting to an open operation. He understands all of these and agrees to proceed. (2) Elevated liver enzymes: Status: Acute (3) Stenosis of left iliac artery: Status: Acute Plan: Will need on table arteriogram and possible stenting of the left iliac artery. That will be done at a later time.
[2021-08-13] MEDS: BENICAR TAB 40 MG PO SCH ×2 (10:48→14:41)
[2021-08-13] MEDS ORDERED: ZEMURON 100 MG VIAL ONE (10:48)
[2021-08-13] MEDS ORDERED: ROBINUL ONE (10:48)
[2021-08-13] MEDS ORDERED: BRIDION ONE (10:48)
[2021-08-13] MEDS ORDERED: OFIRMEV IV 1000 MG VIAL 1,000 MG/100 ML VIAL IV ONE (10:48)
[2021-08-13] MEDS ORDERED: DECADRON INJ ONE (10:48)
[2021-08-13] MEDS ORDERED: DIPRIVAN VIAL 20 ML ONE (10:48)
[2021-08-13] MEDS: CHLORTHALIDONE PO SCH ×2 (10:50→14:41)
[2021-08-13] MEDS ORDERED: ANCEF VIAL 1 GRAM ONE (10:50)
[2021-08-13] MEDS ORDERED: LR 1,000 ML IV 1,000 ML IV ONE (10:50)
[2021-08-13] MEDS ORDERED: FENTANYL VIAL INJ 100 mcg ONE (10:50)
[2021-08-13] MEDS ORDERED: VERSED ONE (10:50)
[2021-08-13] MEDS ORDERED: KETAMINE 50 MG/5 ML-NACL SYRNG ONE (10:51)
[2021-08-13] MEDS ORDERED: PEPCID 20 MG VIAL ONE (10:59)
[2021-08-13] MEDS ORDERED: NEO-SYNEPHRINE INJ ONE (11:30)
[2021-08-13] MEDS ORDERED: TORADOL 30 MG VIAL ONE (11:35)
--- NOTE | 2021-08-13 12:07 | OR.IMMED ---
IMMEDIATE POST-OP NOTE Immediate Post-Op Note Pre-Op Diagnosis: Cholelithiasis and cholecystitis Post-Op Diagnosis: same Procedure: laparoscopic cholecystectomy Description of Procedure: see operative summary Surgeon/Paper Sales Representative: Colin Findings: early edema of gallbladder wall with large gallstone and multiple smaller gallstones . Specimens Removed: gallbladder Estimated Blood Loss: minimal Drains: NONE Complications: none Discharge Progress Notes: to PACU then to floor. Condition: Stable Final Diagnosis: as above
[2021-08-13] MEDS ORDERED: BARHEMSYS INJ IVP PRN (12:16)
[2021-08-13] MEDS ORDERED: BENADRYL INJ 50 MG VIAL IVP PRN (12:16)
[2021-08-13] MEDS ORDERED: DILAUDID INJ IVP PRN (12:16)
[2021-08-13] MEDS ORDERED: PHENERGAN INJ 25 MG IM PRN (12:16)
[2021-08-13] MEDS: LR 1,000 ML IV 1,000 ML IV SCH (13:12)
[2021-08-13] MEDS: PERCOCET TAB 5/325 MG PO PRN (14:42)
[2021-08-13] MEDS ORDERED: ABACAVIR DOLUTEGRAVIR LAMIVUD PO SCH (21:00)
[2021-08-14] MEDS: LR 1,000 ML IV 1,000 ML IV SCH ×2 (00:40→05:24)
[2021-08-14] MEDS: PERCOCET TAB 5/325 MG PO PRN (05:24)
[2021-08-14 05:34] LABS: ALKALINE PHOSPHATASE 239 Units/L (46-116); BLOOD UREA NITROGEN 19 mg/dL (7-18); CARBON DIOXIDE 24.9 mmol/L (21-32); CHLORIDE 103 mmol/L (98-107); COR CA(FOR HYPOALB) 8.8 mg/dL (8.5-10.1); COR NA(FOR HYPERGLY) 138 mmol/L (136-145); CREATININE 1.06 mg/dL (0.70-1.30); SODIUM 137 mmol/L (136-145); TOTAL PROTEIN 6.3 g/dL (6.4-8.2); eGFR NON BLACK RACES > 60 (>60)
[2021-08-14 05:38] LABS: ALANINE AMINOTRANSFERASE 1235 Units/L (12-78); ASPARTATE AMINO TRANSFERASE 1125 Units/L (15-37)
[2021-08-14] MEDS ORDERED: K-DUR TAB 20 MEQ PO PRN (06:19)
[2021-08-14] MEDS: BENICAR TAB 40 MG PO SCH (09:05)
[2021-08-14] MEDS: CHLORTHALIDONE PO SCH (09:05)
--- NOTE | 2021-08-14 11:01 | W.DIS.FURT ---
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 CT scan and ultrasound were consistent with cholelithiasis and early cholecystitis. He underwent uncomplicated laparoscopic cholecystectomy and is doing well. He had mild elevation of liver function tests which are not resolved as of yet. He is to be discharged home on his usual medications plus Percocet 5 mg tablets, one every six hours PRN pain , # 20 . He has been having significant left buttock claudication and coincidentally the CT scan confirmed approximately 95% stenosis of the left common iliac artery. We will get him approved for intervention of this and plan to perform arteriogram and possible stenting of the left common iliac artery on August 16 as an outpatient. Vital Signs: Vital Signs (72 hours) 08/13/21 00:02 08/13/21 00:39 08/13/21 00:42 Temperature 98.4 F Pulse Rate 79 Pulse Rate [Bilateral Radial] Respiratory Rate 18 18 18 Blood Pressure 191/88 Blood Pressure [Right Arm] O2 Sat by Pulse Oximetry 99 08/13/21 01:12 08/13/21 01:39 08/13/21 04:02 Temperature Pulse Rate Pulse Rate [Bilateral Radial] 63 Respiratory Rate 18 18 18 Blood Pressure Blood Pressure [Right Arm] 139/82 O2 Sat by Pulse Oximetry 100 08/13/21 08:00 08/13/21 09:00 08/13/21 10:57 Temperature 97.8 F 97.3 F L Pulse Rate 55 L Pulse Rate [Bilateral Radial] 60 55 L Respiratory Rate 18 20 16 Blood Pressure 153/92 Blood Pressure [Right Arm] 148/83 202/91 O2 Sat by Pulse Oximetry 99 98 95 08/13/21 11:35 08/13/21 12:05 08/13/21 12:09 Temperature 97.8 F Pulse Rate 65 Pulse Rate [Bilateral Radial] Respiratory Rate 15 15 17 Blood Pressure 139/74 Blood Pressure [Right Arm] O2 Sat by Pulse Oximetry 97 08/13/21 12:14 08/13/21 12:19 08/13/21 12:24 Temperature 97.8 F 97.8 F 97.8 F Pulse Rate 64 63 61 Pulse Rate [Bilateral Radial] Respiratory Rate 18 18 18 Blood Pressure 138/74 149/76 139/75 Blood Pressure [Right Arm] O2 Sat by Pulse Oximetry 100 100 98 08/13/21 12:29 08/13/21 12:34 08/13/21 12:38 Temperature 97.8 F 97.8 F 97.8 F Pulse Rate 64 64 64 Pulse Rate [Bilateral Radial] Respiratory Rate 18 18 18 Blood Pressure 142/77 150/80 148/80 Blood Pressure [Right Arm] O2 Sat by Pulse Oximetry 97 97 97 08/13/21 12:50 08/13/21 13:05 08/13/21 13:20 Temperature 97.6 F Pulse Rate Pulse Rate [Bilateral Radial] 64 68 66 Respiratory Rate 18 18 18 Blood Pressure Blood Pressure [Right Arm] 146/87 140/86 152/86 O2 Sat by Pulse Oximetry 98 93 L 94 L 08/13/21 13:35 08/13/21 13:50 08/13/21 14:42 Temperature 98.1 F Pulse Rate Pulse Rate [Bilateral Radial] 72 72 Respiratory Rate 18 18 18 Blood Pressure Blood Pressure [Right Arm] 146/91 156/88 O2 Sat by Pulse Oximetry 93 L 93 L 08/13/21 14:50 08/13/21 15:42 08/13/21 15:50 Temperature 98.1 F Pulse Rate Pulse Rate [Bilateral Radial] 64 64 Respiratory Rate 18 18 18 Blood Pressure Blood Pressure [Right Arm] 150/88 130/83 O2 Sat by Pulse Oximetry 95 98 08/13/21 16:50 08/13/21 17:50 08/13/21 20:00 Temperature 98.3 F 98.3 F 98.7 F Pulse Rate Pulse Rate [Bilateral Radial] 68 78 63 Respiratory Rate 18 18 19 Blood Pressure Blood Pressure [Right Arm] 143/91 177/89 143/78 O2 Sat by Pulse Oximetry 98 95 96 08/13/21 20:03 08/14/21 00:00 08/14/21 04:00 Temperature 98.6 F 98.1 F Pulse Rate 63 Pulse Rate [Bilateral Radial] 56 L 56 L Respiratory Rate 18 18 Blood Pressure Blood Pressure [Right Arm] 115/69 126/65 O2 Sat by Pulse Oximetry 96 96 97 08/14/21 05:24 08/14/21 06:24 Temperature Pulse Rate Pulse Rate [Bilateral Radial] Respiratory Rate 20 18 Blood Pressure Blood Pressure [Right Arm] O2 Sat by Pulse Oximetry Labs: Laboratory Last Values WBC 6.8 X10^3/uL (3.6-10.0) 08/13/21 00:38 RBC 4.65 X10^6/uL (4.7-6.0) L 08/13/21 00:38 Hgb 13.7 g/dL (13.5-18.0) 08/13/21 00:38 Hct 40.8 % (42.0-54.0) L 08/13/21 00:38 MCV 87.6 fL (80.0-100.0) 08/13/21 00:38 MCH 29.5 pg (27.0-34.0) 08/13/21 00:38 MCHC 33.6 g/dL (33.0-35.0) 08/13/21 00:38 RDW 15.1 % (11.6-16.5) 08/13/21 00:38 Plt Count 331 X10^3/uL (150.0-450.0) 08/13/21 00:38 MPV 9.6 fL (7.4-11.0) 08/13/21 00:38 Neut % (Auto) 53.0 % (42.0-75.0) 08/13/21 00:38 Lymph % (Auto) 37.0 % (21.0-51.0) 08/13/21 00:38 Yates % (Auto) 8.3 % (0.0-13.0) 08/13/21 00:38 Eos % (Auto) 1.2 % (0.9-2.9) 08/13/21 00:38 Baso % (Auto) 0.5 % (0.2-1.0) 08/13/21 00:38 Neut # (Auto) 3.6 x10^3/uL (2.2-4.8) 08/13/21 00:38 Lymph # (Auto) 2.5 X10^3/uL (1.3-2.9) 08/13/21 00:38 Yates # (Auto) 0.6 x10^3/uL (0.3-0.8) 08/13/21 00:38 Eos # (Auto) 0.1 x10^3/uL (0.0-0.2) 08/13/21 00:38 Baso # (Auto) 0.0 X10^3/uL (0.0-0.1) 08/13/21 00:38 Absolute Nucleated RBC 0.1 /100WBC 08/13/21 00:38 Sodium 137 mmol/L (136-145) 08/14/21 04:56 Corrected Sodium 138 mmol/L (136-145) 08/14/21 04:56 Potassium 3.3 mmol/L (3.5-5.1) L 08/14/21 04:56 Chloride 103 mmol/L (98-107) 08/14/21 04:56 Carbon Dioxide 24.9 mmol/L (21-32) 08/14/21 04:56 BUN 19 mg/dL (7-18) H 08/14/21 04:56 Creatinine 1.06 mg/dL (0.70-1.30) 08/14/21 04:56 Est GFR (MDRD) Af Amer > 60 (>60) 08/14/21 04:56 Est GFR (MDRD) Non-Af > 60 (>60) 08/14/21 04:56 Glucose 143 mg/dL (65-99) H 08/14/21 04:56 Calcium 8.0 mg/dL (8.5-10.1) L 08/14/21 04:56 Corrected Calcium 8.8 mg/dL (8.5-10.1) 08/14/21 04:56 Total Bilirubin 1.70 mg/dL (0.2-1.0) H 08/14/21 04:56 AST 1125 Units/L (15-37) H 08/14/21 04:56 ALT 1235 Units/L (12-78) H 08/14/21 04:56 Alkaline Phosphatase 239 Units/L (46-116) H 08/14/21 04:56 Total Protein 6.3 g/dL (6.4-8.2) L 08/14/21 04:56 Albumin 3.0 g/dL (3.4-5.0) L 08/14/21 04:56 Globulin 3.3 g/dL (2.5-4.5) 08/14/21 04:56 Albumin/Globulin Ratio 0.9 Ratio (1.1-2.1) L 08/14/21 04:56 Lipase 394 Units/L (73-393) H 08/13/21 00:38 SARS CoV-2 RNA Rapid RAYNE Negative (NEGATIVE) 08/13/21 08:01 Tissue Pathology To follow 08/13/21 11:57 Reason For Visit: ACUTE CHOLECYCSTITIS Discharge Date Discharge Date: 08/14/21 Discharge Diagnosis All Active Problems (Updated 08/13/21 @ 07:54 by Morgan Rockwell) Arm pain (Acute) Toe fracture, right (Acute) Contusion of foot, right (Acute) Status post left hip replacement (Acute) Abdominal pain in male (Acute) Gastritis (Acute) Right renal stone (Acute) Hyperglycemia (Acute) Diverticulosis of colon (Acute) Abnormal liver enzymes (Acute) Hepatic steatosis (Acute) Acute UTI (Acute) Stenosis of left iliac artery (Acute) Elevated liver enzymes (Acute) Acute cholecystitis (Acute) Plan of Treatment: Continue with present treatment and follow up plan. Pt is to keep follow up appointment as instructed and take medications as ordered. Discharge Medications Discharge Medications: Sulfa (Sulfonamide Antibiotics) [SULFA] Allergy (Verified 04/17/20 17:45) CONTINUE taking the following medications chlorthalidone 50 mg PO DAILY 08/13/21 [History] olmesartan [Benicar] 40 mg PO DAILY 08/13/21 [History] New Prescriptions oxycodone-acetaminophen [Percocet] 1 tab PO Q6H PRN #20 tab MDD 4 08/14/21 [Rx] Follow up and Referral Follow Up: 2 Weeks (Colin) Discharge Disposition Assessment: No acute distress noted at time of discharge. Discharge Disposition: stable, to Home Discharge Condition: good Discharge Plan Discharge Plan Hospital Course: 61 year old male who presented with several day history of right upper quadrant pain. CT scan and ultrasound were consistent with cholelithiasis and early cholecystitis. He underwent uncomplicated laparoscopic cholecystectomy and is doing well. He had mild elevation of liver function tests which are not resolved as of yet. He is to be discharged home on his usual medications plus Percocet 5 mg tablets, one every six hours PRN pain , # 20 . He has been having significant left buttock claudication and coincidentally the CT scan confirmed approximately 95% stenosis of the left common iliac artery. We will get him approved for intervention of this and plan to perform arteriogram and possible stenting of the left common iliac artery on August 16 as an outpatient. Patient Disposition: 01 HOME, SELF-CARE Condition: Stable Health Concerns: Post Hospitalization: new medications and changes needed to prevent readmission or further decline. Pt educated and given instructions on all concerns. Care Plan Goals: Problem: Pain/Alteration in Comfort Goal: Improve/ Resolve Pain; Achieve Pain Tolerance Instructions: Take pain medications as prescribed. Contact your primary care provider if your pain is unrelieved or worsens. Follow up with primary care provider as directed. Plan of Treatment: Continue with present treatment and follow up plan. Pt is to keep follow up appointment as instructed and take medications as ordered. Assessment: No acute distress noted at time of discharge. Prescription drug monitoring program results: PDMP reviewed and no concerns identified Prescriptions: New oxycodone-acetaminophen [Percocet] 5-325 mg Tablet 1 tab PO Q6H MDD 4 PRNQty: 20 RF: 0 No Action Triumeq 1 EACH tablet 1 tab PO HS RF: 0 chlorthalidone 50 mg tablet 50 mg PO DAILY RF: 0 olmesartan [Benicar] 40 mg tablet 40 mg PO DAILY RF: 0 Orders to Discharge Patient Discharge Orders: Discharge (Routine); Ordered 08/14/21 Ordered By: Juan Shaw Follow ups/Referrals Follow ups/Referrals: Glenroy Benavides [Primary Care Provider] - 3 days Juan Shaw [STAFF PHYSICIAN] - 08/22/21 10:00 am Instructions Instructions: Soft-Food Eating Plan, Laparoscopic Cholecystectomy, Care After Stand Alone Forms: Excuse From Work or School, Precautions for COVID19, [facility], Patient Portal, Social Distancing
[2021-08-14 11:18] VITALS: BP 127/66
--- NOTE | 2021-08-14 13:01 | DR.OPNOTE ---
OP NOTE Pre-Op Diagnosis: cholelithiasis and cholecystitis Post-Op Diagnosis: same Procedure Date Date Of Procedure: 08/13/21 Procedure: PROCEDURE: laparoscopic cholecystectomy NARRATIVE: The patient was taken to the operative suite and placed in the supine position. General endotracheal anesthesia induced. The entire abdomen prepped and draped in sterile fashion. The patient placed in slight reverse Trendelenburg position and rolled to his left. Time out for the procedure obtained . Curvilinear incision made below the umbilicus in the midline and holding sutures of 0 vicryl placed on either side of the midline fascia. Midline fascia opened with a number 11 knife blade and the peritoneum opened with Metzenbaum scissors. The Adam canula placed and secured with holding sutures . The abdomen insufflated to 15 mm of mercury with carbon dioxide. The gallbladder was easily identified in the right upper quadrant. Two 5 mm trocars placed along the right costal margin and a 5 mm trocar placed in the epigastrium. The gallbladder was elevated by grasping it at the fundus and infundibulum. Dissection carried out with the hook cautery in Calot's triangle identifying the critical view of safety. The cystic artery and cystic duct dissected free. Each divided proximally and distally between Clips. The peritoneum of the gallbladder incised with electrocautery , removing the gallbladder from the liver bed. Gallbladder placed in a specimen bag and brought out through the umbilical trocar site. The trocar replaced. Abdomen irrigated and suctioned free. Hemostasis obtained with electrocautery . Surgicel placed in the liver bed at the dissection site of the gallbladder. All trocars removed. The fascia of the midline incision closed with interrupted 0- Vicryl sutures . All incisions closed with interrupted 3-0 Vicryl suture . Steri -strips applied to all incisions to close the skin. A total of 20 cc's of 0. 5% Marcaine distributed between the four laparoscopic incisions. Patient was extubated and taken to the recovery room in good condition. Type of Anesthesia: Local (0.5 5 Marcaine ) and General Anesthetic w/ETT Findings: cholelithiasis and early cholecystitis with edema of gallbladder wall Specimen/Pathology: gallbladder Type of Fluids Used:: Lactated Ringers EBL: minimal Drains/Tubes Placed: None Complications:: non e Needle/Sponge Count:: correct Disposition/Condition: Pt. tolerated procedure without difficulty. Extubated in the OR and taken to PACU in stable condition.
== END 2021-08-14 10:30 | disposition home or self-care (01) ==
LOC: ER → MED/SURG 08:19 → INTOOBSV 08:19 → MED/SURG 09:12
PROVIDERS: ADMIT Surgery; ATTEND Surgery

== ENCOUNTER 2025-04-08 00:18 | Inpatient (IN) ==
[2025-04-08 00:38] VITALS: BMI 30.9
[2025-04-08 01:06] LABS: MEAN PLATELET VOLUME 9.2 fL (7.4-11.0); RED CELL DISTRIBUTION WIDTH 17.0 % (11.6-16.5)
[2025-04-08 01:20] LABS: COR NA(FOR HYPERGLY) 144 mmol/L (136-145); CREATININE 1.13 mg/dL (0.70-1.30); eGFR NON BLACK RACES > 60 (>60)
[2025-04-08 01:24] LABS: APPEARANCE,URINE CLEAR (CLEAR); BLOOD/HEMOGLOBIN,URINE NEGATIVE (NEGATIVE); LEUKOCYTE ESTERASE ,URINE NEGATIVE (NEGATIVE); NITRITES,URINE NEGATIVE (NEGATIVE)
--- NOTE | 2025-04-08 02:10 | CT ---
EXAM: CT ABDOMEN AND PELVIS WITHOUT CONTRAST HISTORY: lower abd pain ; COMPARISON: 12/31/2021 TECHNIQUE: Axial images were obtained of the abdomen and pelvis without IV contrast. Sagittal and coronal reformatted images were provided. All images were reviewed in a variety of windows and levels. RADIATION REDUCTION TECHNIQUE: Automated exposure control, adjustment of the mA or kV according to patient size, or iterative reconstruction techniques were used. FINDINGS: Please note that lack of IV contrast does limit evaluation of the soft tissues and vascular detail. The visualized lower lung zones are clear. The heart size is within normal limits. There is no evidence of a pericardial effusion. The liver, spleen, pancreas, adrenal glands, and kidneys are grossly unremarkable. Post cholecystectomy changes. There is no evidence of stones or signs of obstructive uropathy. The stomach, small bowel, and colon are grossly unremarkable. A few scattered diverticula are seen without evidence of diverticulitis. Retrocecal appendix is enlarged with Candida appendiceal inflammatory changes present. There is no evidence of retroperitoneal or mesenteric lymphadenopathy. Stent grafts within the common and external iliac veins bilaterally. The visualized bones demonstrate degenerative changes. There are no concerning lytic or blastic lesions identified. Small fat containing umbilical hernia. IMPRESSION: Enlarged retrocecal appendix with periappendiceal inflammatory changes consistent with acute appendicitis. Colonic diverticulosis without evidence of diverticulitis. Small fat containing umbilical hernia. COMMUNICATIONS: These findings were discussed with emergency Department personnel at 20:06 a.m. 04/08/2025 by radiology call gwot ia/ilo intelligence support THIS IS AN ELECTRONICALLY VERIFIED FINAL REPORT 04/08/2025 2:07 AM - Electronically signed by Lavell Awad MD
[2025-04-08] MEDS: ZOFRAN INJ 4 MG VIAL IVP ONE (02:38)
--- NOTE | 2025-04-08 02:40 | DR.ABDMALE ---
HPI Time seen Time Seen by Provider: 04/08/25 02:27 PCP Primary Care Physician: Makayla Complaint Chief Complaint Doctors Comments: Patient with complaint of severe right lower quadrant pain that started in the morning. Patient states she had some runny stools over the last couple of days. Pain started this morning but has also worsened through the day. Denies fever. Chief Complaint:: Patient ambulatory in er with complaints of severe, constant lower abdominal pain that started this morning. Pt also complains of diarrhea x2 days. Self Treatment fo Chief Complaint: Prilosec COVID-19 Coronavirus risk:travel/contact w/high risk person: No Has patient experienced Coronavirus symptoms: No Source History provided by:: pt Mode of arrival Mode of Arrival: Ambulatory Timing Onset of Chief Complaint: 04/07/25 PMH PMH Past Medical History: Yes Past Medical History: Depression, Diabetes, Dyslipidemia, Gout, Hypertension and Seizures Past Medical History Comment: DDD, HIV, Gastritis, UTI, chronic back pain, Myositis Past Surgical History: Yes Surgical History: Angioplasty/Stents, Cholecystectomy and Ortho Surgery Past Surgical History Comment: Spinal fusion x2, hip replacement x2, foot surgery, neck surgery Family History History of Family Medical Conditions: Yes Family Medical History: Hypertension Social History Does patient currently use any type of tobacco product: No Have you used tobacco products in the last 12 months: No Type of Tobacco Use: None Does any household member use tobacco: No Alcohol Use: None Do you use any recreational Drugs:: No Lives With: Family Lives Where: Home Travel Risk Coronavirus risk:travel/contact w/high risk person: No Has patient experienced Coronavirus symptoms: No Infectious screening Have you traveled outside the country in the last 6 months?: No Isolation: Standard ROS Review of Systems Constitutional: No Symptoms Reported Eyes: No Symptoms Reported ENTM: No Symptoms Reported Respiratoy: No Symptoms Reported Cardiovascular: No Symptoms Reported Gastrointestinal/Abdominal: See HPI, Abdominal Pain and Diarrhea; negative Constipation, Nausea or Vomiting Genitourinary: No Symptoms Reported Neurological: No Symptoms Reported Musculoskeletal: No Symptoms Reported Integumentary: No Symptoms Reported Hematologic/Lymphatic: No Symptoms Reported Endocrine: No Symptoms Reported Psychiatric: No Symptoms Reported All Other Systems: Reviewed and Negative PE Vital Signs Vital Signs: Temp Pulse Resp BP Pulse Ox O2 Del Method 04/08/25 02:44 18 04/08/25 00:18 98.3 F 80 18 166/86 97 Room Air General Limitations: No Limitations General Appearance: Alert and In No Apparent Distress Head Head Exam: Normal Inspection Eyes Eye exam: Normal Appearance Neck Neck Exam: Normal Inspection Chest Chest Inspection: Normal Inspection Respiratory Respiratory Exam: Normal Lung Sounds Bilat Cardiovascular Cardiovascular Exam: Regular Rate and Normal Rhythm Abdominal Exam Abdominal Exam: Normal Bowel Sounds, Soft and Tenderness (Right lower quadrant); negative Distention, Guarding, Rebound, Rigidity, Organomegaly or Ascites Rectal Rectal Exam: Deferred Back Back Exam: Normal Inspection Exam: Male: Deferred Neurologic Neurological Exam: Alert and Oriented X3 Psychiatric Psychiatric Exam: Normal Affect and Normal Mood Skin Skin Exam: Warm, Dry, Intact and Normal Color COURSE Treatment Treatment: Discussed results of workup with patient and family. Patient agreeable with admission. Patient requested Dr. Vargas, surgeon to be consulted. Consultation Called: 02:58 Consultation Comments: Discussed case with Dr. Benavides and he is agreeable to admission. Critical Care Notes Total Time (mins): 43 Critical Diagnosis: Appendicitis Critical Interventions: Time spent examining patient, education of patient and family, ordering and reviewing diagnostic workup and results, coordinating care and admission. ROR Labs Reviewed Laboratory Results Reviewed?: Yes 04/08/25 00:55 04/08/25 00:55 Laboratory: WBC 11.4 X10^3/uL (3.6-10.0) H 04/08/25 00:55 RBC 4.49 X10^6/uL (4.7-6.0) L 04/08/25 00:55 Hgb 13.0 g/dL (13.5-18.0) L 04/08/25 00:55 Hct 39.0 % (42.0-54.0) L 04/08/25 00:55 MCV 87.0 fL (80.0-100.0) 04/08/25 00:55 MCH 29.0 pg (27.0-34.0) 04/08/25 00:55 MCHC 33.4 g/dL (33.0-35.0) 04/08/25 00:55 RDW 17.0 % (11.6-16.5) H 04/08/25 00:55 Plt Count 293 X10^3/uL (150.0-450.0) 04/08/25 00:55 MPV 9.2 fL (7.4-11.0) 04/08/25 00:55 Neut % (Auto) 70.4 % (42.0-75.0) 04/08/25 00:55 Lymph % (Auto) 21.3 % (21.0-51.0) 04/08/25 00:55 [place] % (Auto) 5.8 % (0.0-13.0) 04/08/25 00:55 Eos % (Auto) 2.0 % (0.9-2.9) 04/08/25 00:55 Baso % (Auto) 0.5 % (0.2-1.0) 04/08/25 00:55 Neut # (Auto) 8.0 x10^3/uL (2.2-4.8) H 04/08/25 00:55 Lymph # (Auto) 2.4 X10^3/uL (1.3-2.9) 04/08/25 00:55 [place] # (Auto) 0.7 x10^3/uL (0.3-0.8) 04/08/25 00:55 Eos # (Auto) 0.2 x10^3/uL (0.0-0.2) 04/08/25 00:55 Baso # (Auto) 0.1 X10^3/uL (0.0-0.1) 04/08/25 00:55 Absolute Nucleated RBC 0.1 /100WBC 04/08/25 00:55 Sodium 143 mmol/L (136-145) 04/08/25 00:55 Corrected Sodium 144 mmol/L (136-145) 04/08/25 00:55 Potassium 3.9 mmol/L (3.5-5.1) 04/08/25 00:55 Chloride 108 mmol/L (98-107) H 04/08/25 00:55 Carbon Dioxide 27.4 mmol/L (21-32) 04/08/25 00:55 BUN 31 mg/dL (7-18) H 04/08/25 00:55 Creatinine 1.13 mg/dL (0.70-1.30) 04/08/25 00:55 Est GFR (MDRD) Af Amer > 60 (>60) 04/08/25 00:55 Est GFR (MDRD) Non-Af > 60 (>60) 04/08/25 00:55 Glucose 151 mg/dL (65-99) H 04/08/25 00:55 Calcium 9.7 mg/dL (8.5-10.1) 04/08/25 00:55 Corrected Calcium TNP 04/08/25 00:55 Total Bilirubin 0.40 mg/dL (0.2-1.0) 04/08/25 00:55 AST 36 Units/L (15-37) 04/08/25 00:55 ALT 49 Units/L (12-78) 04/08/25 00:55 Alkaline Phosphatase 45 Units/L (46-116) L 04/08/25 00:55 Total Protein 7.3 g/dL (6.4-8.2) 04/08/25 00:55 Albumin 3.7 g/dL (3.4-5.0) 04/08/25 00:55 Globulin 3.6 g/dL (2.5-4.5) 04/08/25 00:55 Albumin/Globulin Ratio 1.0 Ratio (1.1-2.1) L 04/08/25 00:55 Amylase 76 Units/L (25-115) 04/08/25 00:55 Lipase 69 Units/L (16-77) 04/08/25 00:55 Specimen Type Clean catch urine 04/08/25 00:58 Urine Color Yellow (YELLOW) 04/08/25 00:58 Urine Appearance Clear (CLEAR) 04/08/25 00:58 Urine pH 5.0 (5.0 - 8.0) 04/08/25 00:58 Ur Specific [place] 1.020 (1.000-1.030) 04/08/25 00:58 Urine Protein Negative (NEGATIVE) 04/08/25 00:58 Urine Glucose (UA) Negative (NEGATIVE) 04/08/25 00:58 Urine Ketones Negative (NEGATIVE) 04/08/25 00:58 Urine Blood Negative (NEGATIVE) 04/08/25 00:58 Urine Nitrite Negative (NEGATIVE) 04/08/25 00:58 Urine Bilirubin Negative (NEGATIVE) 04/08/25 00:58 Urine Urobilinogen Normal (NORMAL) 04/08/25 00:58 Ur Leukocyte Esterase Negative (NEGATIVE) 04/08/25 00:58 Other Results Comments: Name: ROSAMARIAALLIE STEVE : 1960 Sex: M Location: ER Order Number(s): [id number] Procedure(s):CT ABDOMEN/PELVIS W/O CON Ordering Physician: Galo Bruno Primary Care: Glenroy Benavides MD Service Date: 04/08/25 Service Time: 40 EXAM: CT ABDOMEN AND PELVIS WITHOUT CONTRAST HISTORY: lower abd pain ; COMPARISON: 12/31/2021 TECHNIQUE: Axial images were obtained of the abdomen and pelvis without IV contrast. Sagittal and coronal reformatted images were provided. All images were reviewed in a variety of windows and levels. RADIATION REDUCTION TECHNIQUE: Automated exposure control, adjustment of the mA or kV according to patient size, or iterative reconstruction techniques were used. FINDINGS: Please note that lack of IV contrast does limit evaluation of the soft tissues and vascular detail. The visualized lower lung zones are clear. The heart size is within normal limits. There is no evidence of a pericardial effusion. The liver, spleen, pancreas, adrenal glands, and kidneys are grossly unremarkable. Post cholecystectomy changes. There is no evidence of stones or signs of obstructive uropathy. The stomach, small bowel, and colon are grossly unremarkable. A few scattered diverticula are seen without evidence of diverticulitis. Retrocecal appendix is enlarged with [place] appendiceal inflammatory changes present. There is no evidence of retroperitoneal or mesenteric lymphadenopathy. Stent grafts within the common and external iliac veins bilaterally. The visualized bones demonstrate degenerative changes. There are no concerning lytic or blastic lesions identified. Small fat containing umbilical hernia. IMPRESSION: Enlarged retrocecal appendix with periappendiceal inflammatory changes consistent with acute appendicitis. Colonic diverticulosis without evidence of diverticulitis. Small fat containing umbilical hernia. COMMUNICATIONS: These findings were discussed with emergency Department personnel at 20:06 a.m. 04/08/2025 by radiology call practice support specialist THIS IS AN ELECTRONICALLY VERIFIED FINAL REPORT 04/08/2025 2:07 AM - Electronically signed by Lavell Awad MD Opioid Opioid Risk Tool Age (Nicholas box if 16-45): No History of Preadolescent Sexual Abuse: No Total: 0 Total Score Risk Category: Low Risk Copyright: Mani GOODSON predicting aberrant behaviors Discharge Plan Diagnosis Discharge Problem: Acute appendicitis Discharge Plan Patient Disposition: ADMITTED INPATIENT Condition: Stable Prescriptions: No Action fenofibrate nanocrystallized 145 mg tablet 145 mg PO QDAY labetalol 200 mg tablet 200 mg PO BID folic acid 1 mg tablet 1 mg PO QDAY cholecalciferol (vitamin D3) 1,250 mcg (50,000 unit) capsule 1,250 mcg PO QWEEK chlorthalidone 25 mg tablet 25 mg PO QDAY nifedipine 60 mg tablet extended release 24hr 60 mg PO QDAY glyburide 5 mg tablet 5 mg PO BID (DME) BD Luer-Ran Syringe 3 mL 25 gauge x 1" syringe See Rx Instructions .ROUTE DIRECTED Qty: 1 Rx Instructions: As directed hydrocodone-acetaminophen 10-325 mg tablet 1 tab PO BID MDD 2 PRN (Reason: pain) 30 Days Qty: 60 0RF Triumeq 600-50-300 mg tablet 1 tab PO QDAY Trulicity 1.5 mg/0.5 mL pen injector SUBCUT Patient Comments: [NO ORIGINAL SIG] Praluent Pen 150 mg/mL pen injector SUBCUT Patient Comments: [NO ORIGINAL SIG] olmesartan [Benicar] 40 mg tablet 40 mg PO DAILY Patient Comments: TAKE 1 TABLET BY MOUTH ONCE DAILY Health Concerns: Post Hospitalization: new medications and changes needed to prevent readmission or further decline. Pt educated and given instructions on all concerns. Plan of Treatment: Continue with present treatment and follow up plan. Pt is to keep follow up appointment as instructed and take medications as ordered. Orders to Discharge Patient Discharge Orders: Transfer (Routine); Ordered 04/08/25 Ordered By: Galo Bruno Follow ups/Referrals Follow ups/Referrals: Glenroy Benavides MD [Primary Care Provider, MEDICAL] - 3 days Instructions Stand Alone Forms: Find Help Web Site, Post Hospital Follow Up Care Print Language: EQUATORIAL GUINEAN
[2025-04-08] MEDS: DILAUDID INJ IVP ONE (02:44)
[2025-04-08] MEDS ORDERED: ULTANE GAS IN ONE (03:04)
[2025-04-08] MEDS: ZOSYN VIAL 3.375 GRAMS 3.375 G in NS 100 ML IV 100 ML IV SCH ×3 (03:12→13:12)
[2025-04-08] MEDS ORDERED: NS 250 ML IV 25 ML IV PRN ×2 (04:36→11:51)
[2025-04-08] MEDS ORDERED: CONSULT PHARMACY - POTASSIUM & MAGNESIUM XX SCH (04:36)
[2025-04-08] MEDS ORDERED: DILAUDID INJ IVP PRN ×2 (04:36→09:33)
[2025-04-08] MEDS ORDERED: NS 1,000 ML IV 1,000 ML IV SCH (04:36)
[2025-04-08] MEDS ORDERED: ZOFRAN INJ 4 MG VIAL IVP PRN ×3 (04:36→11:49)
[2025-04-08 06:17] LABS: COR NA(FOR HYPERGLY) 145 mmol/L (136-145); CREATININE 0.81 mg/dL (0.70-1.30); eGFR NON BLACK RACES > 60 (>60)
[2025-04-08 06:20] LABS: MEAN PLATELET VOLUME 10.6 fL (7.4-11.0); RED CELL DISTRIBUTION WIDTH 16.8 % (11.6-16.5)
[2025-04-08 06:44] LABS: PLATELET MORPHOLOGY COMMENT NORMAL (NORMAL)
--- NOTE | 2025-04-08 07:10 | RAD ---
EXAM: CHEST, 1 VIEW HISTORY: Appendicitis ; COMPARISON: No relevant prior studies were available for comparison at the time of interpretation. TECHNIQUE: CHEST, 1 VIEW FINDINGS: Chest: Lines and tubes: None Mediastinum: Cardiomegaly. Pulmonary vessels: There is pulmonary vascular congestion. Lung chang: No suspicious airspace opacity. Pleura: No effusion. No pneumothorax. Bones and soft tissues: No acute osseous or soft tissue abnormality. IMPRESSION: 1. Increased volume status THIS IS AN ELECTRONICALLY VERIFIED FINAL REPORT 04/08/2025 7:06 AM - Electronically signed by Zheng Clemens MD
--- NOTE | 2025-04-08 07:29 | EKG ---
Test Reason : Preop Blood Pressure : */* mmHG Vent. Rate : 54 BPM Atrial Rate : 54 BPM P-R Int : 176 ms QRS Dur : 98 ms QT Int : 436 ms P-R-T Axes : 57 7 28 degrees QTc Int : 413 ms Sinus bradycardia Minimal voltage criteria for LVH, may be normal variant ( R in aVL ) Borderline ECG No previous ECGs available Confirmed by Jean Rosa MD ([id number]) on 04/09/2025 5:59:35 AM Referred By: Confirmed By: Jean Rosa MD
[2025-04-08] MEDS: OFIRMEV IV 1000 MG VIAL 1,000 MG/100 ML VIAL IV ONE (08:57)
[2025-04-08] MEDS: DECADRON INJ ONE ×2 (08:57→09:23)
[2025-04-08] MEDS: ZEMURON 100 MG VIAL ONE (08:57)
[2025-04-08] MEDS: DIPRIVAN VIAL 20 ML ONE (08:57)
[2025-04-08] MEDS: ZOFRAN INJ 4 MG VIAL ONE (08:57)
[2025-04-08] MEDS: REGLAN INJ 10 MG VIAL ONE (08:57)
[2025-04-08] MEDS: FENTANYL VIAL INJ 100 mcg ONE (09:00)
[2025-04-08] MEDS: VERSED ONE (09:00)
[2025-04-08] MEDS ORDERED: K-RIDER 10 MEQ/100 ML WATER 10 MEQ/100 ML BAG IV SCH (09:00)
[2025-04-08] MEDS: NS 1,000 ML IV 1,000 ML ONE ×2 (09:19→09:20)
[2025-04-08] MEDS: ANCEF VIAL 1 GRAM ONE (09:19)
[2025-04-08] MEDS: NS 1,000 ML IV 700 ML IV PRN (09:21)
[2025-04-08] MEDS: PEPCID 20 MG VIAL ONE (09:21)
[2025-04-08] MEDS: PEPCID 20 MG VIAL IVP PRN (09:24)
[2025-04-08] MEDS: ZOFRAN INJ 4 MG VIAL IVP PRN (09:24)
[2025-04-08] MEDS: VERSED IVP PRN (09:24)
[2025-04-08] MEDS: REGLAN INJ 10 MG VIAL IVP PRN (09:24)
[2025-04-08] MEDS ORDERED: BARHEMSYS INJ IVP PRN (09:33)
[2025-04-08] MEDS ORDERED: BENADRYL INJ 50 MG VIAL IVP PRN (09:33)
--- NOTE | 2025-04-08 09:36 | DR.H&P ---
H&P History & Physical for Day of: H&P Date: 04/08/25 Chief Complaint Chief Complaint: abdominal pain History of Present Illness History of Present Illness: Patient is a 64-year-old male with past medical history of HIV, degenerative disc disease, hypertension, type 2 diabetes mellitus, presenting with severe right lower quadrant pain that started in the morning. Reports having some loose stools over the past few days. Denies any fevers or chills. Reports that pain is persistent. Labs/imaging: WBC 12.7, hemoglobin 13.4, platelets 196, sodium 144, potassium 4.4, creatinine 0.81, glucose 144, UA negative, CT abdomen pelvis was obtained that revealed an acute appendicitis. Chest x-ray revealed some volume overload. Patient was admitted for acute appendicitis. He was started on IV antibiotic Zosyn. He was kept n.p.o. and general surgery was consulted. Plan for surgery this morning. Otherwise continue with current treatment plan. Continue closely monitor and follow-up labs/imaging. Time spent for clinical assessment, reviewing labs/imaging, physical exam, decision making and documentation greater than 45 mins. Past Medical History Past Medical History: Depression, Diabetes, Dyslipidemia, Gout, Hypertension and Seizures Past Surgical History Surgical History: Neurosurgery and Ortho Surgery Family History Family Medical History: Diabetes Mellitus, Coronary Artery Disease and Hypertension Social History Does patient currently use any type of tobacco product: No Have you used tobacco products in the last 12 months: No Type of Tobacco Use: None Does any household member use tobacco: No Alcohol Use: None Drug Use: None Medications Home Medications: Home Medications Medication Instructions Recorded Confirmed Type olmesartan 40 mg tablet (Benicar) 40 mg PO DAILY 08/1304/08/25 History cholecalciferol (vitamin D3) 1,250 1,250 mcg PO QWEEK 04/19/24 04/08/25 History mcg (50,000 unit) capsule fenofibrate nanocrystallized 145 145 mg PO QDAY 04/08/25 History mg tablet folic acid 1 mg tablet 1 mg PO QDAY 04/19/24 History labetalol 200 mg tablet 200 mg PO BID 04/19/2404/08 History chlorthalidone 25 mg tablet 25 mg PO QDAY 02/09/25 History glyburide 5 mg tablet 5 mg PO BID 02/09/25 5 History nifedipine 60 mg tablet,extended 60 mg PO QDAY 5 04/08/25 History release 24 hr syringe with needle 3 mL 25 gauge #1 ea 02/09/2504/08 History x 1" (BD Luer-Ran Syringe) abacavir 600 mg-dolutegravir 50 1 tab PO QDAY 04/08/25 04/08/25 History mg-lamivudine 300 mg tablet (Triumeq) alirocumab 150 mg/mL subcutaneous mg subcut 04/08/25 History pen injector (Praluent Pen) dulaglutide 1.5 mg/0.5 mL mg subcut 04/08/25 History subcutaneous pen injector (Trulicity) Allergies Allergies Allergy/AdvReac Type Severity Reaction Status Date / Time Sulfa (Sulfonamide Allergy Unknown Verified 02/09/25 10:52 Antibiotics) (SULFA) Labs 04/08/25 05:36 04/08/25 05:36 Labs: Laboratory WBC 12.7 X10^3/uL (3.6-10.0) H 04/08/25 05:36 RBC 4.60 X10^6/uL (4.7-6.0) L 04/08/25 05:36 Hgb 13.4 g/dL (13.5-18.0) L 04/08/25 05:36 Hct 40.4 % (42.0-54.0) L 04/08/25 05:36 MCV 87.8 fL (80.0-100.0) 04/08/25 05:36 MCH 29.1 pg (27.0-34.0) 04/08/25 05:36 MCHC 33.1 g/dL (33.0-35.0) 04/08/25 05:36 RDW 16.8 % (11.6-16.5) H 04/08/25 05:36 Plt Count 196 X10^3/uL (150.0-450.0) 04/08/25 05:36 Plt Count Comment Adequate (ADEQUATE) 04/08/25 05:36 MPV 10.6 fL (7.4-11.0) 04/08/25 05:36 Neut % (Auto) 71.5 % (42.0-75.0) 04/08/25 05:36 Lymph % (Auto) 20.1 % (21.0-51.0) L 04/08/25 05:36 [place] % (Auto) 7.1 % (0.0-13.0) 04/08/25 05:36 Eos % (Auto) 1.1 % (0.9-2.9) 04/08/25 05:36 Baso % (Auto) 0.2 % (0.2-1.0) 04/08/25 05:36 Neut # (Auto) 9.1 x10^3/uL (2.2-4.8) H 04/08/25 05:36 Lymph # (Auto) 2.5 X10^3/uL (1.3-2.9) 04/08/25 05:36 [place] # (Auto) 0.9 x10^3/uL (0.3-0.8) H 04/08/25 05:36 Eos # (Auto) 0.1 x10^3/uL (0.0-0.2) 04/08/25 05:36 Baso # (Auto) 0.0 X10^3/uL (0.0-0.1) 04/08/25 05:36 Absolute Nucleated RBC 0.2 /100WBC 04/08/25 05:36 Plt Clumps, EDTA Few 04/08/25 05:36 Plt Morphology Comment Normal (NORMAL) 04/08/25 05:36 RBC Morphology Normal (NORMAL) 04/08/25 05:36 Sodium 144 mmol/L (136-145) 04/08/25 05:36 Corrected Sodium 145 mmol/L (136-145) 04/08/25 05:36 Potassium 4.4 mmol/L (3.5-5.1) 04/08/25 05:36 Chloride 108 mmol/L (98-107) H 04/08/25 05:36 Carbon Dioxide 23.3 mmol/L (21-32) 04/08/25 05:36 BUN 27 mg/dL (7-18) H 04/08/25 05:36 Creatinine 0.81 mg/dL (0.70-1.30) 04/08/25 05:36 Est GFR (MDRD) Af Amer > 60 (>60) 04/08/25 05:36 Est GFR (MDRD) Non-Af > 60 (>60) 04/08/25 05:36 Glucose 144 mg/dL (65-99) H 04/08/25 05:36 POC Glucose (mg/dL) 144 mg/dL (65-99) H 04/08/25 06:16 Calcium 9.4 mg/dL (8.5-10.1) 04/08/25 05:36 Corrected Calcium TNP 04/08/25 05:36 Total Bilirubin 0.60 mg/dL (0.2-1.0) 04/08/25 05:36 AST 49 Units/L (15-37) H 04/08/25 05:36 ALT 50 Units/L (12-78) 04/08/25 05:36 Alkaline Phosphatase 45 Units/L (46-116) L 04/08/25 05:36 Total Protein 7.2 g/dL (6.4-8.2) 04/08/25 05:36 Albumin 3.5 g/dL (3.4-5.0) 04/08/25 05:36 Globulin 3.7 g/dL (2.5-4.5) 04/08/25 05:36 Albumin/Globulin Ratio 0.9 Ratio (1.1-2.1) L 04/08/25 05:36 Amylase 76 Units/L (25-115) 04/08/25 00:55 Lipase 69 Units/L (16-77) 04/08/25 00:55 Specimen Type Clean catch urine 04/08/25 00:58 Urine Color Yellow (YELLOW) 04/08/25 00:58 Urine Appearance Clear (CLEAR) 04/08/25 00:58 Urine pH 5.0 (5.0 - 8.0) 04/08/25 00:58 Ur Specific [place] 1.020 (1.000-1.030) 04/08/25 00:58 Urine Protein Negative (NEGATIVE) 04/08/25 00:58 Urine Glucose (UA) Negative (NEGATIVE) 04/08/25 00:58 Urine Ketones Negative (NEGATIVE) 04/08/25 00:58 Urine Blood Negative (NEGATIVE) 04/08/25 00:58 Urine Nitrite Negative (NEGATIVE) 04/08/25 00:58 Urine Bilirubin Negative (NEGATIVE) 04/08/25 00:58 Urine Urobilinogen Normal (NORMAL) 04/08/25 00:58 Ur Leukocyte Esterase Negative (NEGATIVE) 04/08/25 00:58 Review of Systems Constitutional: No Symptoms Reported Eyes: No Symptoms Reported ENT: No Symptoms Reported Respiratory: No Symptoms Reported Cardiovascular: No Symptoms Reported Gastrointestinal: Nausea and Abdominal Pain Genitourinary: No Symptoms Reported Musculoskeletal: Back Pain Skin: No Symptoms Reported Neurological: No Symptoms Reported Physical Exam Vital Signs: Vital Signs Temperature 97.3 F Temperature 98.1 F Pulse Rate [Apical] 56 Pulse Rate 65 Pulse Rate 56 Pulse Rate 57 Pulse Rate 61 Pulse Rate 69 Pulse Rate 73 Respiratory Rate 16 Respiratory Rate 17 Respiratory Rate 18 Respiratory Rate 18 Blood Pressure [Left Arm] 143/73 Blood Pressure 166/88 Blood Pressure 160/83 Blood Pressure 149/77 O2 Sat by Pulse Oximetry 94 O2 Sat by Pulse Oximetry 98 O2 Sat by Pulse Oximetry 99 O2 Sat by Pulse Oximetry 91 O2 Sat by Pulse Oximetry 93 O2 Sat by Pulse Oximetry 94 O2 Sat by Pulse Oximetry 97 Oriented: Normal Eyes: Normal Ear: Normal Nose: Normal Throat: Normal Respiratory: Clear Throughout Cardiovascular: Normal : Normal Auscultation: Bowel Sounds: Normal Palpation: Normal Tenderness: RLQ and Severe Skin: Normal Musculoskeletal: Normal Psychiatric: Normal Mood Description: Calm and Appropriate Affect: Normal Speech Pattern: Clear and Appropriate Assessment/Plan (1) Acute appendicitis: Qualifiers: Acute appendicitis type: other Qualified Code(s): K35.890 - Other acute appendicitis without perforation or gangrene Status: Acute Plan: N.p.o., IV antibiotics, general surgery consulted, plan for surgery this morning. (2) Type 2 diabetes mellitus: Qualifiers: Diabetes mellitus [facility] insulin use: without intermediate designer use Diabetes mellitus complication status: with other specified complication Qualified Code(s): E11.69 - Type 2 diabetes mellitus with other specified complication Status: Acute (3) DDD (degenerative disc disease), lumbar: Qualifiers: Disc-related pain type: discogenic back pain and lower extremity pain Q ualified Code(s): M51.362 - Other intervertebral disc degeneration, lumbar region with discogenic back pain and lower extremity pain Status: Acute (4) HIV infection: Status: None (5) Essential hypertension: Status: None (6) Hypertriglyceridemia: Status: None Review H&P Reviewed: Yes Patient was examined?: Yes
[2025-04-08] MEDS: NS 100 ML IV 100 ML ONE (09:40)
[2025-04-08] MEDS: ANCEF VIAL 1 GRAM IV PRN (09:40)
[2025-04-08] MEDS ORDERED: XYLOCAINE 2 % (PLAIN) PRN (09:45)
[2025-04-08] MEDS: DIPRIVAN VIAL 200 ML IVP PRN (09:45)
[2025-04-08] MEDS: ZEMURON 100 MG VIAL IVP PRN (09:45)
[2025-04-08] MEDS: DECADRON INJ IVP PRN (09:53)
[2025-04-08] MEDS: FENTANYL VIAL INJ 100 mcg IVP PRN (09:55)
[2025-04-08] MEDS: MARCAINE 0.5% ONE (10:00)
[2025-04-08] MEDS: OFIRMEV IV 1000 MG VIAL 1,000 MG/100 ML VIAL IV PRN (10:03)
[2025-04-08] MEDS: BRIDION ONE (10:06)
[2025-04-08] MEDS: ROBINUL ONE (10:08)
[2025-04-08] MEDS: KETAMINE HCL IV PRN (10:14)
[2025-04-08] MEDS: BACTROBAN TOPICAL OINT ONE (10:16)
[2025-04-08] MEDS: DILAUDID INJ ONE (10:33)
[2025-04-08] MEDS: ROBINUL IVP PRN (10:37)
[2025-04-08] MEDS: DILAUDID INJ IVP PRN (10:49)
[2025-04-08] MEDS: BENICAR PO SCH (10:53)
[2025-04-08] MEDS: NORMODYNE TAB 200 MG PO SCH (10:53)
[2025-04-08] MEDS: CHLORTHALIDONE PO SCH (10:54)
[2025-04-08] MEDS: BRIDION IVP PRN (11:04)
[2025-04-08] MEDS: D5 1/2 NS 1,000 ML 1,000 ML IV SCH (13:11)
[2025-04-08] MEDS: NORCO 5/325 MG TAB PO PRN (17:26)
[2025-04-08] MEDS: SNACK - Diabetic Appropriate PO SCH (20:17)
[2025-04-08] MEDS: COLACE CAP 100 MG PO SCH (21:34)
[2025-04-08] MEDS ORDERED: NS 250 ML IV 250 ML IV ONE (21:38)
[2025-04-09] MEDS: MORPHINE SULFATE INJ 4 MG IVP PRN (04:09)
[2025-04-09 04:50] LABS: MEAN PLATELET VOLUME 9.6 fL (7.4-11.0); RED CELL DISTRIBUTION WIDTH 16.8 % (11.6-16.5)
[2025-04-09 05:04] LABS: COR CA(FOR HYPOALB) 9.6 mg/dL (8.5-10.1); COR NA(FOR HYPERGLY) 141 mmol/L (136-145); CREATININE 1.09 mg/dL (0.70-1.30); eGFR NON BLACK RACES > 60 (>60)
--- NOTE | 2025-04-09 15:26 | NOTE.SOAP ---
Soap Note Note for Day of Date of Exam: 04/09/25 Subjective Data Subjective Data: Patient seen postop day 1 after acute appendicitis with appendectomy and drain placement due to perforation. No acute events overnight. Patient still reports fair amount of generalized abdominal pain, especially around the incision sites. Objective Data Objective Data: Well-developed, well-nourished, overweight male resting in bed. Belly still very tender postoperatively with drain present with little output. Heart regular rate and rhythm, lungs clear, bowel sounds are present. Assessment Assessment: 1. Acute appendicitis with perforation 2. DM 2 3. DDD, lumbar 4. HIV infection Plan Plan: Continue per general surgery. Resume appropriate home medications. Pain control. Continue to monitor vitals and labs closely.
[2025-04-09] MEDS: TYLENOL 325 MG TAB PO PRN (15:33)
[2025-04-09] MEDS: ULTRAM PO PRN (20:58)
[2025-04-10] MEDS ORDERED: NS 250 ML IV 250 ML IV ONE (05:27)
[2025-04-10] MEDS: NS 250 ML IV 25 ML IV PRN (05:46)
[2025-04-10 07:00] LABS: MEAN PLATELET VOLUME 9.4 fL (7.4-11.0); RED CELL DISTRIBUTION WIDTH 16.6 % (11.6-16.5)
[2025-04-10 07:22] LABS: COR CA(FOR HYPOALB) 9.6 mg/dL (8.5-10.1); COR NA(FOR HYPERGLY) 139 mmol/L (136-145); CREATININE 0.85 mg/dL (0.70-1.30); eGFR NON BLACK RACES > 60 (>60)
[2025-04-10] MEDS: FLAGYL IV PREMIX 500 MG BAG 500 MG/100 ML BAG IV SCH (12:16)
[2025-04-10] MEDS: CIPRO IV 400 MG PREMIX* 400 MG/200 ML IV.SOLN. IV SCH (12:16)
[2025-04-10] MEDS: NovoLIN R (or HumuLIN R) SUBCUT PRN (12:21)
--- NOTE | 2025-04-10 12:57 | NOTE.SOAP ---
Soap Note Note for Day of Date of Exam: 04/10/25 Subjective Data Subjective Data: Patient seen with nurse. No acute events overnight. He did have a bowel movement and got out of bed yesterday. WBCs up, hemoglobin stable, febrile overnight. Objective Data Objective Data: Well-developed, well-nourished, obese male in no acute distress. Easily awakened. Head NCAT, hearing intact conversation. Heart regular rate and rhythm, lungs clear, speech strong. Belly mildly distended and mildly tender throughout. Bowel sounds are present. Nothing in drain tube. Assessment Assessment: 1. Sepsis following acute appendicitis with perforation 2. HIV infection 3. DM 2 Plan Plan: Stop Zosyn and start Cipro and Flagyl IV. Repeat blood cultures. Repeat CT of the abdomen and pelvis. Monitor labs and vitals closely. Patient actually has a better exam than yesterday, but will still closely monitor.
[2025-04-10] MEDS: OMNIPAQUE 350 mg/mL 100 mL BTL IVP NR (13:24)
--- NOTE | 2025-04-10 13:38 | RAD ---
EXAM: CHEST, 1 VIEW HISTORY: Post op fever, elevated WBC; COMPARISON: 04/08/2025 TECHNIQUE: AP FINDINGS: Stable cardiac silhouette. Low lung volumes with increased streaky bibasilar opacities. No large pleural effusion or visible pneumothorax. IMPRESSION: Low lung volumes with increased streaky bibasilar atelectasis/infiltrates. THIS IS AN ELECTRONICALLY VERIFIED FINAL REPORT 04/10/2025 1:35 PM - Electronically signed by Jona Campa MD
--- NOTE | 2025-04-10 13:42 | CT ---
EXAM: CT ABDOMEN AND PELVIS WITH AND WITHOUT CONTRAST HISTORY: Fever and elevated WBC; recent appendectomy COMPARISON: CT dated 04/08/2025. TECHNIQUE: Axial CT images were obtained through the abdomen and pelvis both before and after the intravenous administration of contrast. Coronal reformatted images were included. Informed written consent was obtained prior to contrast administration. All CT scans at this facility use dose modulation, iterative reconstruction, and/or weight based dosing when appropriate to reduce radiation dose to as low as reasonably achievable. FINDINGS: Trace right pleural effusion with moderate right basilar atelectasis. Mild left basilar atelectasis. Unremarkable liver. Prior cholecystectomy. No biliary dilatation. Spleen, pancreas, adrenals, and kidneys are unremarkable. Mild aortoiliac atherosclerosis without aneurysm. Left common iliac artery stent is widely patent. Patent iliac vein stents. No abnormally distended or focally thickened bowel loops. Enteric contrast seen in the mid small bowels. Recent appendectomy with percutaneous drain in the right pericolic gutter. There is mild surrounding edema but no fluid collection or evidence of abscess. No free peritoneal air. Unremarkable urinary bladder. No free pelvic fluid. No acute osseous findings. Mild lumbar spondylosis. IMPRESSION: 1. Postsurgical changes from recent appendectomy. No signs of complication. No evidence of perforation, abscess, or obstruction. 2. Trace right pleural effusion and moderate right basilar atelectasis. Mild left basilar atelectasis. THIS IS AN ELECTRONICALLY VERIFIED FINAL REPORT 04/10/2025 1:39 PM - Electronically signed by Jona Campa MD
[2025-04-11 06:00] LABS: MEAN PLATELET VOLUME 9.8 fL (7.4-11.0); RED CELL DISTRIBUTION WIDTH 16.3 % (11.6-16.5)
[2025-04-11 06:06] LABS: COR CA(FOR HYPOALB) 10.0 mg/dL (8.5-10.1); COR NA(FOR HYPERGLY) 139 mmol/L (136-145); CREATININE 0.74 mg/dL (0.70-1.30); eGFR NON BLACK RACES > 60 (>60)
[2025-04-11] MEDS ORDERED: CONSULT PHARMACY - POTASSIUM & MAGNESIUM XX SCH (07:00)
[2025-04-11] MEDS: POTASSIUM CHLORIDE LIQ PO SCH (08:59)
[2025-04-11] MEDS: MAG-OX TAB PO SCH (08:59)
--- NOTE | 2025-04-11 10:34 | PCM.PROG ---
Progress Note Progress Note for Day of Date of Exam: 04/11/25 Subjective Subjective: Patient seen at bedside, no acute events overnight. He is s/p appendectomy. He was noted to be febrile few days ago, workup was done including cultures and AIT. Chest x-ray did show bibasilar atelectasis/infiltrate. Patient is currently on 3 L oxygen. He reports coughing up sputum. He is currently on IV antibiotics and fluids. He has been tolerating his diet. Labs/imaging reviewed: - WBC 12.9 hemoglobin 11.4 potassium 2.8 magnesium 1.8 creatinine 0.74 - Blood cultures pending - AIT pending Plan: Wean oxygen as tolerated, continue bronchodilators and IS. Follow pending cultures. Continue current antibiotics. Continue pain control. Replace electrolytes as per protocol. Continue hydration. Continue current diet. Follow recommendations as per surgery. Add stool softeners. Monitor a.m. labs and imaging. Past Medical Family Social History Allergies: Allergies Sulfa (Sulfonamide Antibiotics) (SULFA) Allergy (Unknown, Verified 02/09/25 10:52) Vital Signs and I&O's Vital Signs: Vital Signs Temperature 99.3 F Temperature 98.6 F Pulse Rate [Apical] 84 Pulse Rate [Apical] 96 Respiratory Rate 22 Respiratory Rate 20 Respiratory Rate 21 Blood Pressure [Left Arm] 121/74 Blood Pressure [Left Arm] 136/69 O2 Sat by Pulse Oximetry 94 O2 Sat by Pulse Oximetry 97 Intake and Output: Intake & Output 04/08/25 04/09/25 04/10/25 04/11/25 23:59 23:59 23:59 23:59 Intake Total 5065 / 5065 3362 / 3362 4533 / 4533 1804 / 1804 Output Total 2120 / 2120 960 / 960 1551 / 1551 525 / 525 Balance 2945 / 2945 2402 / 2402 2982 / 2982 1279 / 1279 Physical Exam Oriented: Normal Eyes: Normal Ear: Normal Nose: Normal Throat: Normal Cardiovascular: Normal : Normal Auscultation: Bowel Sounds: Normal Tenderness: Periumbilical and Mild Skin: Normal Musculoskeletal: Normal Psychiatric: Normal Mood Description: Calm Affect: Normal Speech Pattern: Clear and Appropriate Laboratory and Diagnostics 04/11/25 05:20 04/11/25 05:20 Labs: Laboratory WBC 12.9 X10^3/uL (3.6-10.0) H 04/11/25 05:20 RBC 3.91 X10^6/uL (4.7-6.0) L 04/11/25 05:20 Hgb 11.4 g/dL (13.5-18.0) L 04/11/25 05:20 Hct 33.8 % (42.0-54.0) L 04/11/25 05:20 MCV 86.4 fL (80.0-100.0) 04/11/25 05:20 MCH 29.3 pg (27.0-34.0) 04/11/25 05:20 MCHC 33.9 g/dL (33.0-35.0) 04/11/25 05:20 RDW 16.3 % (11.6-16.5) 04/11/25 05:20 Plt Count 254 X10^3/uL (150.0-450.0) 04/11/25 05:20 Plt Count Comment Adequate (ADEQUATE) 04/08/25 05:36 MPV 9.8 fL (7.4-11.0) 04/11/25 05:20 Neut % (Auto) 78.0 % (42.0-75.0) H 04/11/25 05:20 Lymph % (Auto) 9.5 % (21.0-51.0) L 04/11/25 05:20 [place] % (Auto) 11.3 % (0.0-13.0) 04/11/25 05:20 Eos % (Auto) 1.1 % (0.9-2.9) 04/11/25 05:20 Baso % (Auto) 0.1 % (0.2-1.0) L 04/11/25 05:20 Neut # (Auto) 10.0 x10^3/uL (2.2-4.8) H 04/11/25 05:20 Lymph # (Auto) 1.2 X10^3/uL (1.3-2.9) L 04/11/25 05:20 [place] # (Auto) 1.5 x10^3/uL (0.3-0.8) H 04/11/25 05:20 Eos # (Auto) 0.1 x10^3/uL (0.0-0.2) 04/11/25 05:20 Baso # (Auto) 0.0 X10^3/uL (0.0-0.1) 04/11/25 05:20 Absolute Nucleated RBC 0.0 /100WBC 04/11/25 05:20 Plt Clumps, EDTA Few 04/08/25 05:36 Plt Morphology Comment Normal (NORMAL) 04/08/25 05:36 RBC Morphology Normal (NORMAL) 04/08/25 05:36 Sodium 137 mmol/L (136-145) 04/11/25 05:20 Corrected Sodium 139 mmol/L (136-145) 04/11/25 05:20 Potassium 2.8 mmol/L (3.5-5.1) L* 04/11/25 05:20 Chloride 100 mmol/L (98-107) 04/11/25 05:20 Carbon Dioxide 26.4 mmol/L (21-32) 04/11/25 05:20 BUN 11 mg/dL (7-18) 04/11/25 05:20 Creatinine 0.74 mg/dL (0.70-1.30) 04/11/25 05:20 Est GFR (MDRD) Af Amer > 60 (>60) 04/11/25 05:20 Est GFR (MDRD) Non-Af > 60 (>60) 04/11/25 05:20 Glucose 180 mg/dL (65-99) H 04/11/25 05:20 POC Glucose (mg/dL) 169 mg/dL (65-99) H 04/11/25 05:41 Calcium 8.6 mg/dL (8.5-10.1) 04/11/25 05:20 Corrected Calcium 10.0 mg/dL (8.5-10.1) 04/11/25 05:20 Magnesium 1.8 mg/dL (2.0-2.9) L 04/11/25 05:20 Total Bilirubin 0.50 mg/dL (0.2-1.0) 04/11/25 05:20 AST 28 Units/L (15-37) 04/11/25 05:20 ALT 33 Units/L (12-78) 04/11/25 05:20 Alkaline Phosphatase 55 Units/L (46-116) 04/11/25 05:20 Total Protein 6.6 g/dL (6.4-8.2) 04/11/25 05:20 Albumin 2.3 g/dL (3.4-5.0) L 04/11/25 05:20 Globulin 4.3 g/dL (2.5-4.5) 04/11/25 05:20 Albumin/Globulin Ratio 0.5 Ratio (1.1-2.1) L 04/11/25 05:20 Amylase 76 Units/L (25-115) 04/08/25 00:55 Lipase 69 Units/L (16-77) 04/08/25 00:55 Specimen Type Clean catch urine 04/08/25 00:58 Urine Color Yellow (YELLOW) 04/08/25 00:58 Urine Appearance Clear (CLEAR) 04/08/25 00:58 Urine pH 5.0 (5.0 - 8.0) 04/08/25 00:58 Ur Specific [place] 1.020 (1.000-1.030) 04/08/25 00:58 Urine Protein Negative (NEGATIVE) 04/08/25 00:58 Urine Glucose (UA) Negative (NEGATIVE) 04/08/25 00:58 Urine Ketones Negative (NEGATIVE) 04/08/25 00:58 Urine Blood Negative (NEGATIVE) 04/08/25 00:58 Urine Nitrite Negative (NEGATIVE) 04/08/25 00:58 Urine Bilirubin Negative (NEGATIVE) 04/08/25 00:58 Urine Urobilinogen Normal (NORMAL) 04/08/25 00:58 Ur Leukocyte Esterase Negative (NEGATIVE) 04/08/25 00:58 Plan (1) Post-op pneumonia: Status: Acute (2) Hypokalemia: Status: Acute (3) Hypomagnesemia: Status: Acute (4) Acute appendicitis: Status: Acute Qualifiers: Acute appendicitis type: other Qualified Code(s): K35.890 - Other acute appendicitis without perforation or gangrene (5) Type 2 diabetes mellitus: Status: Chronic Qualifiers: Diabetes mellitus complication status: with other specified complication Diabetes mellitus terminal gauger insulin use: without [place] [facility] use Qualified Code(s): E11.69 - Type 2 diabetes mellitus with other specified complication (6) DDD (degenerative disc disease), lumbar: Status: Chronic Qualifiers: Disc-related pain type: discogenic back pain and lower extremity pain Q ualified Code(s): M51.362 - Other intervertebral disc degeneration, lumbar region with discogenic back pain and lower extremity pain (7) HIV infection: Status: None (8) Essential hypertension: Status: None (9) Hypertriglyceridemia: Status: None
[2025-04-11] MEDS: PATIENT'S HOME MEDICATION PO SCH (16:52)
--- NOTE | 2025-04-11 17:51 | NOTE.SOAP ---
Soap Note Note for Day of Date of Exam: 04/11/25 Subjective Data Subjective Data: HIV-positive patient status post laparoscopic appendectomy for ruptured appendicitis. Drain in place but is minimal output and is serous in nature. Patient has had shortness of breath and has evidence of possible pneumonia on chest x-ray. Objective Data Temperature: 98.0 F Pulse Rate: 79 Respiratory Rate: 16 Blood Pressure: 148/75 O2 Sat by Pulse Oximetry: 95 Objective Data: Patient still not eating well. [place] drainage is small and serous in nature. Repeat CT scan showed no obvious abscess in the abdomen. Patient does have evidence of possible pneumonia. Cultures grew Klebsiella from the blood which is sensitive to taisha quinolone. Breathing appears labored at this time Assessment Assessment: HIV-positive patient with ruptured appendicitis complicated by some respiratory compromise postprocedure Plan Plan: Will remove drain in the morning. Continue to observe. Treatment for antibiotics as per internal medicine consultation
[2025-04-11] MEDS: MILK OF MAGNESIA PO PRN (22:01)
[2025-04-12 05:41] LABS: MEAN PLATELET VOLUME 9.5 fL (7.4-11.0); RED CELL DISTRIBUTION WIDTH 16.6 % (11.6-16.5)
[2025-04-12 05:57] LABS: COR CA(FOR HYPOALB) 10.8 mg/dL (8.5-10.1); COR NA(FOR HYPERGLY) 139 mmol/L (136-145); CREATININE 0.69 mg/dL (0.70-1.30); eGFR NON BLACK RACES > 60 (>60)
[2025-04-12] MEDS ORDERED: CONSULT PHARMACY - POTASSIUM & MAGNESIUM XX SCH (07:00)
--- NOTE | 2025-04-12 09:56 | PCM.PROG ---
Progress Note Progress Note for Day of Date of Exam: 04/12/25 Subjective Subjective: Patient seen at bedside, no acute events overnight. He is s/p appendectomy. He was not able to ambulate much yesterday due to exertional dyspnea. He remains on 3L NC. He reports cough is better. Cultures pending. Labs/imaging reviewed: - WBC 13.9 hemoglobin 11.7 potassium 3.8 magnesium 1.8 creatinine 0.69 - Blood cultures pending - AIT pending Plan: Wean oxygen as tolerated, continue bronchodilators and IS. Follow pending cultures. Check d-dimer. Change antibiotics to levaquin. Repeat CXR. Continue pain control. Replace electrolytes as per protocol. Continue hydration. Continue current diet. Follow recommendations as per surgery. Monitor a.m. labs and imaging. Past Medical Family Social History Allergies: Allergies Sulfa (Sulfonamide Antibiotics) (SULFA) Allergy (Unknown, Verified 02/09/25 10:52) Vital Signs and I&O's Vital Signs: Vital Signs Temperature 98.4 F Pulse Rate [Apical] 90 Respiratory Rate 21 Blood Pressure [Right Arm] 120/85 O2 Sat by Pulse Oximetry 93 Intake and Output: Intake & Output 04/09/25 04/10/25 04/11/25 04/12/25 23:59 23:59 23:59 23:59 Intake Total 3362 / 3362 4533 / 4533 3304 / 3304 120 / 120 Output Total 960 / 960 1551 / 1551 1450 / 1450 Balance 2402 / 2402 2982 / 2982 1854 / 1854 120 / 120 Physical Exam Oriented: Normal Eyes: Normal Ear: Normal Nose: Normal Throat: Normal Cardiovascular: Normal Auscultation: Bowel Sounds: Normal Palpation: Normal Tenderness: Periumbilical and Mild Skin: Normal Musculoskeletal: Normal Psychiatric: Normal Mood Description: Calm Affect: Normal Speech Pattern: Clear and Appropriate Laboratory and Diagnostics 04/12/25 05:10 04/12/25 05:10 Labs: 04/11/25 15:30 Sputum - Expectorated Sputum - Final Laboratory WBC 13.9 X10^3/uL (3.6-10.0) H 04/12/25 05:10 RBC 4.05 X10^6/uL (4.7-6.0) L 04/12/25 05:10 Hgb 11.7 g/dL (13.5-18.0) L 04/12/25 05:10 Hct 34.8 % (42.0-54.0) L 04/12/25 05:10 MCV 85.9 fL (80.0-100.0) 04/12/25 05:10 MCH 29.0 pg (27.0-34.0) 04/12/25 05:10 MCHC 33.7 g/dL (33.0-35.0) 04/12/25 05:10 RDW 16.6 % (11.6-16.5) H 04/12/25 05:10 Plt Count 319 X10^3/uL (150.0-450.0) 04/12/25 05:10 Plt Count Comment Adequate (ADEQUATE) 04/08/25 05:36 MPV 9.5 fL (7.4-11.0) 04/12/25 05:10 Neut % (Auto) 75.4 % (42.0-75.0) H 04/12/25 05:10 Lymph % (Auto) 11.7 % (21.0-51.0) L 04/12/25 05:10 [place] % (Auto) 11.7 % (0.0-13.0) 04/12/25 05:10 Eos % (Auto) 1.1 % (0.9-2.9) 04/12/25 05:10 Baso % (Auto) 0.1 % (0.2-1.0) L 04/12/25 05:10 Neut # (Auto) 10.5 x10^3/uL (2.2-4.8) H 04/12/25 05:10 Lymph # (Auto) 1.6 X10^3/uL (1.3-2.9) 04/12/25 05:10 [place] # (Auto) 1.6 x10^3/uL (0.3-0.8) H 04/12/25 05:10 Eos # (Auto) 0.2 x10^3/uL (0.0-0.2) 04/12/25 05:10 Baso # (Auto) 0.0 X10^3/uL (0.0-0.1) 04/12/25 05:10 Absolute Nucleated RBC 0.1 /100WBC 04/12/25 05:10 Plt Clumps, EDTA Few 04/08/25 05:36 Plt Morphology Comment Normal (NORMAL) 04/08/25 05:36 RBC Morphology Normal (NORMAL) 04/08/25 05:36 Sodium 138 mmol/L (136-145) 04/12/25 05:10 Corrected Sodium 139 mmol/L (136-145) 04/12/25 05:10 Potassium 3.8 mmol/L (3.5-5.1) 04/12/25 05:10 Chloride 101 mmol/L (98-107) 04/12/25 05:10 Carbon Dioxide 28.1 mmol/L (21-32) 04/12/25 05:10 BUN 13 mg/dL (7-18) 04/12/25 05:10 Creatinine 0.69 mg/dL (0.70-1.30) L 04/12/25 05:10 Est GFR (MDRD) Af Amer > 60 (>60) 04/12/25 05:10 Est GFR (MDRD) Non-Af > 60 (>60) 04/12/25 05:10 Glucose 160 mg/dL (65-99) H 04/12/25 05:10 POC Glucose (mg/dL) 153 mg/dL (65-99) H 04/12/25 05:55 Calcium 9.6 mg/dL (8.5-10.1) 04/12/25 05:10 Corrected Calcium 10.8 mg/dL (8.5-10.1) H 04/12/25 05:10 Magnesium 2.1 mg/dL (2.0-2.9) 04/12/25 05:10 Total Bilirubin 0.50 mg/dL (0.2-1.0) 04/12/25 05:10 AST 41 Units/L (15-37) H 04/12/25 05:10 ALT 39 Units/L (12-78) 04/12/25 05:10 Alkaline Phosphatase 58 Units/L (46-116) 04/12/25 05:10 Total Protein 7.1 g/dL (6.4-8.2) 04/12/25 05:10 Albumin 2.5 g/dL (3.4-5.0) L 04/12/25 05:10 Globulin 4.6 g/dL (2.5-4.5) H 04/12/25 05:10 Albumin/Globulin Ratio 0.5 Ratio (1.1-2.1) L 04/12/25 05:10 Amylase 76 Units/L (25-115) 04/08/25 00:55 Lipase 69 Units/L (16-77) 04/08/25 00:55 Specimen Type Clean catch urine 04/08/25 00:58 Urine Color Yellow (YELLOW) 04/08/25 00:58 Urine Appearance Clear (CLEAR) 04/08/25 00:58 Urine pH 5.0 (5.0 - 8.0) 04/08/25 00:58 Ur Specific [place] 1.020 (1.000-1.030) 04/08/25 00:58 Urine Protein Negative (NEGATIVE) 04/08/25 00:58 Urine Glucose (UA) Negative (NEGATIVE) 04/08/25 00:58 Urine Ketones Negative (NEGATIVE) 04/08/25 00:58 Urine Blood Negative (NEGATIVE) 04/08/25 00:58 Urine Nitrite Negative (NEGATIVE) 04/08/25 00:58 Urine Bilirubin Negative (NEGATIVE) 04/08/25 00:58 Urine Urobilinogen Normal (NORMAL) 04/08/25 00:58 Ur Leukocyte Esterase Negative (NEGATIVE) 04/08/25 00:58 Plan (1) Post-op pneumonia: Status: Acute (2) Hypokalemia: Status: Acute (3) Hypomagnesemia: Status: Acute (4) Acute appendicitis: Status: Acute Qualifiers: Acute appendicitis type: other Qualified Code(s): K35.890 - Other acute appendicitis without perforation or gangrene (5) Type 2 diabetes mellitus: Status: Chronic Qualifiers: Diabetes mellitus intermediate manager insulin use: without senior care use Diabetes mellitus complication status: with other specified complication Qualified Code(s): E11.69 - Type 2 diabetes mellitus with other specified complication (6) DDD (degenerative disc disease), lumbar: Status: Chronic Qualifiers: Disc-related pain type: discogenic back pain and lower extremity pain Q ualified Code(s): M51.362 - Other intervertebral disc degeneration, lumbar region with discogenic back pain and lower extremity pain (7) HIV infection: Status: None (8) Essential hypertension: Status: None (9) Hypertriglyceridemia: Status: None
[2025-04-12] MEDS: K-DUR TAB 20 MEQ PO SCH (10:05)
[2025-04-12] MEDS: LOVENOX INJ 40 MG SYR SC SCH (10:05)
[2025-04-12] MEDS: LEVAQUIN PREMIX IV 500 MG 500 MG/100 ML BAG IV SCH (10:06)
--- NOTE | 2025-04-12 10:51 | NOTE.SOAP ---
Soap Note Note for Day of Date of Exam: 04/12/25 Subjective Data Subjective Data: Still with some shortness of breath. Abdomen is distended and not eating well. Drain with minimal output of serous fluid. Repeat CT scans shows no obvious abscess Objective Data Temperature: 98.4 F Pulse Rate: 90 Respiratory Rate: 24 Blood Pressure: 148/75 O2 Sat by Pulse Oximetry: 93 Objective Data: Stented abdomen. Incisions clean and dry. Drain removed. White blood cell count 13,900. Infiltrates noted on chest x-ray Assessment Assessment: Status post laparoscopic appendectomy for ruptured appendicitis. Drain now removed. Patient with evidence of possible pneumonia. Plan Plan: Section. Drain removed. Evidence of ileus. Will advance diet slowly. Encourage ambulation. Antibiotics as per internal medicine service
[2025-04-12 11:34] LABS: ABG BASE EXCESS 6.9 mmol/L (-2.0-2.0); ABG OXYGEN SATURATION 88.0 % (90-100); ABG PCO2 38.0 mmHg (35.0-45.0); ABG PH 7.510 (7.35-7.45); ABG PO2 48.0 mmHg (80.0-100.0)
[2025-04-12 11:35] LABS: ABG ALLEN TEST POS; ABG HCO3 30.3 mmol/L (22-26)
[2025-04-12] MEDS ORDERED: OMNIPAQUE 350 mg/mL 100 mL BTL 100 ML ONE (11:53)
[2025-04-12] MEDS ORDERED: OMNIPAQUE 350 mg/mL 100 mL BTL IVP NR (12:00)
--- NOTE | 2025-04-12 12:54 | CT ---
EXAM: CT PULMONARY ANGIOGRAM CHEST WITH CONTRAST (PE PROTOCOL) HISTORY: > d-dimer r/o pe, sob; COMPARISON: None. TECHNIQUE: Axial CT images were obtained through the chest after the intravenous administration of contrast. Coronal reformatted images were included. Maximum intensity projection (MIP) images were performed per pulmonary angiogram protocol. Informed written consent was obtained prior to contrast administration. All CT scans at this facility use dose modulation, iterative reconstruction, and/or weight based dosing when appropriate to reduce radiation dose to as low as reasonably achievable. FINDINGS: HEART AND PULMONARY ARTERIES: No evidence of right ventricular strain. No filling defects in the pulmonary arteries to suggest emboli. SUPPORT DEVICES: None LYMPH NODES: No pathologically enlarged nodes. LUNGS AND PLEURA: Lungs demonstrate areas of dense consolidation in the right lower lobe. Small volume right pleural effusion is apparent AIRWAYS: Normal UPPER ABDOMEN: Normal BONES: Normal IMPRESSION: No evidence of pulmonary embolism. Small volume right pleural effusion with right basilar lung consolidation which may reflect pneumonia. Follow-up to resolution suggested THIS IS AN ELECTRONICALLY VERIFIED FINAL REPORT 04/12/2025 12:51 PM - Electronically signed by Jona Robles MD
[2025-04-12] MEDS: XOPENEX 1.25 MG/3 ML NEBULE NEB SCH (13:17)
--- NOTE | 2025-04-12 13:48 | RAD ---
EXAM: CHEST, 1 VIEW HISTORY: SOB; COMPARISON: 04/10/2025 [email or web address] silhouette. Small right pleural effusion and mild right basilar opacities. No visible pneumothorax. IMPRESSION: Small right pleural effusion and mild right basilar atelectasis/infiltrates. THIS IS AN ELECTRONICALLY VERIFIED FINAL REPORT 04/12/2025 1:44 PM - Electronically signed by Jona Campa MD
[2025-04-12] MEDS: PULMICORT NEB TX 0.5 MG NEB SCH (21:32)
[2025-04-13 05:13] LABS: COR CA(FOR HYPOALB) 11.0 mg/dL (8.5-10.1); COR NA(FOR HYPERGLY) 139 mmol/L (136-145); CREATININE 0.67 mg/dL (0.70-1.30); eGFR NON BLACK RACES > 60 (>60)
[2025-04-13 05:16] LABS: MEAN PLATELET VOLUME 9.3 fL (7.4-11.0); RED CELL DISTRIBUTION WIDTH 16.6 % (11.6-16.5)
[2025-04-13] MEDS ORDERED: CONSULT PHARMACY - POTASSIUM & MAGNESIUM XX SCH (08:00)
[2025-04-13] MEDS: KLOR-CON PO SCH (09:06)
[2025-04-13 13:39] VITALS: BP 128/76; PULSE 76; RESP 17; TEMP 98; O2SAT 97
[2025-04-13] MEDS ORDERED: MAG-OX TAB PO SCH (14:00)
--- NOTE | 2025-04-13 16:41 | W.DIS.FURT ---
Summary of Discharge Discharge Summary of Date Date of Exam: 04/13/25 Admission Date Date of Admission: 04/08/25 Admission Diagnosis Patient Problems (Updated 04/11/25 @ 10:32 by Annemarie Handley MD) Acute appendicitis (Acute) K35.80 Hospital Course: Patient is a 64-year-old male with past medical history of HIV, degenerative disc disease, hypertension, type 2 diabetes mellitus, presenting with severe right lower quadrant pain that started in the morning. Reports having some loose stools over the past few days. Denies any fevers or chills. Reports that pain is persistent. Labs/imaging: WBC 12.7, hemoglobin 13.4, platelets 196, sodium 144, potassium 4.4, creatinine 0.81, glucose 144, UA negative, CT abdomen pelvis was obtained that revealed an acute appendicitis. Chest x-ray revealed some volume overload. Patient was admitted for acute appendicitis. He was started on IV antibiotic Zosyn. He was kept n.p.o. and general surgery was consulted. He underwent surgery without any complications. His labs were monitored daily and electrolytes replaced as needed. He did have a ANA drain postprocedure. He remained on IV antibiotics and pain control. His diet was advanced as tolerated. He was noted to have some shortness of breath and cough. Chest x-ray revealed pneumonia. All cultures were negative. He was requiring 3 L nasal cannula. Patient's D-dimer was elevated, CTA was done which did not show PE but did show right basilar pneumonia. He did require home oxygen on ambulation. He was stable for discharge on p.o. antibiotics. He will follow-up with PCP and surgery as scheduled. Vital Signs: Vital Signs (72 hours) 04/10/25 12:00 04/10/25 12:14 04/10/25 12:44 Temperature 98.9 F Pulse Rate Pulse Rate [Apical] 83 Respiratory Rate 18 20 20 Blood Pressure Blood Pressure [Left Arm] 128/62 Blood Pressure [Right Arm] O2 Sat by Pulse Oximetry 100 Oxygen Delivery Method Nasal Cannula Oxygen Flow Rate 3 FIO2% 04/10/25 16:00 04/10/25 19:00 04/10/25 19:09 Temperature 99.5 F Pulse Rate Pulse Rate [Apical] 82 Respiratory Rate 21 19 Blood Pressure Blood Pressure [Left Arm] 113/62 Blood Pressure [Right Arm] O2 Sat by Pulse Oximetry 99 Oxygen Delivery Method Nasal Cannula Room Air Oxygen Flow Rate 3 FIO2% 04/10/25 20:00 04/10/25 20:09 04/10/25 20:54 Temperature 98.9 F Pulse Rate Pulse Rate [Apical] 97 H Respiratory Rate 21 21 Blood Pressure Blood Pressure [Left Arm] 124/67 Blood Pressure [Right Arm] O2 Sat by Pulse Oximetry 94 L Oxygen Delivery Method Nasal Cannula Nasal Cannula Oxygen Flow Rate 3 3 FIO2% 32 04/11/25 00:00 04/11/25 00:00 04/11/25 01:39 Temperature 98.6 F 98.6 F Pulse Rate Pulse Rate [Apical] 86 86 Respiratory Rate 21 21 20 Blood Pressure Blood Pressure [Left Arm] 135/62 135/62 Blood Pressure [Right Arm] O2 Sat by Pulse Oximetry 95 95 Oxygen Delivery Method Nasal Cannula Nasal Cannula Oxygen Flow Rate 3 3 FIO2% 04/11/25 02:09 04/11/25 04:00 04/11/25 07:00 Temperature 98.6 F Pulse Rate Pulse Rate [Apical] 96 H Respiratory Rate 20 21 Blood Pressure Blood Pressure [Left Arm] 136/69 Blood Pressure [Right Arm] O2 Sat by Pulse Oximetry 97 Oxygen Delivery Method Nasal Cannula Nasal Cannula Oxygen Flow Rate 3 2 FIO2% 04/11/25 08:00 04/11/25 08:27 04/11/25 10:10 Temperature 99.3 F Pulse Rate Pulse Rate [Apical] 84 Respiratory Rate 20 22 Blood Pressure Blood Pressure [Left Arm] 121/74 Blood Pressure [Right Arm] O2 Sat by Pulse Oximetry 94 L Oxygen Delivery Method Nasal Cannula Nasal Cannula Oxygen Flow Rate 3 3 FIO2% 32 04/11/25 11:10 04/11/25 12:00 04/11/25 12:44 Temperature 99.4 F Pulse Rate Pulse Rate [Apical] 83 Respiratory Rate 19 20 20 Blood Pressure Blood Pressure [Left Arm] 130/64 Blood Pressure [Right Arm] O2 Sat by Pulse Oximetry 93 L Oxygen Delivery Method Nasal Cannula Oxygen Flow Rate 3 FIO2% 04/11/25 13:14 04/11/25 16:00 04/11/25 17:49 Temperature 98.0 F 98.0 F Pulse Rate 79 Pulse Rate [Apical] 79 Respiratory Rate 18 16 16 Blood Pressure 148/75 Blood Pressure [Left Arm] 148/75 Blood Pressure [Right Arm] O2 Sat by Pulse Oximetry 95 95 Oxygen Delivery Method Nasal Cannula Oxygen Flow Rate 3 FIO2% 04/11/25 19:00 04/11/25 19:30 04/11/25 19:39 Temperature 99.1 F Pulse Rate Pulse Rate [Apical] 106 H Respiratory Rate 18 20 Blood Pressure Blood Pressure [Left Arm] Blood Pressure [Right Arm] 167/74 O2 Sat by Pulse Oximetry 93 L Oxygen Delivery Method Room Air Nasal Cannula Oxygen Flow Rate 3 FIO2% 04/11/25 20:30 04/11/25 22:50 04/11/25 23:12 Temperature 98.8 F Pulse Rate Pulse Rate [Apical] 81 Respiratory Rate 18 21 Blood Pressure Blood Pressure [Left Arm] Blood Pressure [Right Arm] 119/60 O2 Sat by Pulse Oximetry 96 Oxygen Delivery Method Nasal Cannula Nasal Cannula Oxygen Flow Rate 3 3 FIO2% 32 04/11/25 23:25 04/11/25 23:55 04/12/25 03:50 Temperature Pulse Rate Pulse Rate [Apical] Respiratory Rate 21 18 Blood Pressure Blood Pressure [Left Arm] Blood Pressure [Right Arm] O2 Sat by Pulse Oximetry Oxygen Delivery Method Nasal Cannula Oxygen Flow Rate 3 FIO2% 32 04/12/25 03:53 04/12/25 07:00 04/12/25 08:00 Temperature 98.4 F 99.5 F Pulse Rate Pulse Rate [Apical] 90 93 H Respiratory Rate 21 16 Blood Pressure Blood Pressure [Left Arm] Blood Pressure [Right Arm] 120/85 122/59 O2 Sat by Pulse Oximetry 93 L 95 Oxygen Delivery Method Nasal Cannula Nasal Cannula Nasal Cannula Oxygen Flow Rate 3 2 3 FIO2% 04/12/25 08:35 04/12/25 10:18 04/12/25 10:24 Temperature 98.4 F Pulse Rate 90 Pulse Rate [Apical] Respiratory Rate 24 24 Blood Pressure 148/75 Blood Pressure [Left Arm] Blood Pressure [Right Arm] O2 Sat by Pulse Oximetry 93 L Oxygen Delivery Method Nasal Cannula Nasal Cannula Oxygen Flow Rate 3 3 FIO2% 32 04/12/25 10:48 04/12/25 10:49 04/12/25 12:00 Temperature 98.4 F 98.9 F Pulse Rate 90 Pulse Rate [Apical] 81 Respiratory Rate 22 24 16 Blood Pressure 148/75 Blood Pressure [Left Arm] Blood Pressure [Right Arm] 113/63 O2 Sat by Pulse Oximetry 93 L 96 Oxygen Delivery Method Nasal Cannula Oxygen Flow Rate 3 FIO2% 04/12/25 13:17 04/12/25 16:00 04/12/25 19:00 Temperature 99.1 F Pulse Rate 90 Pulse Rate [Apical] 93 H Respiratory Rate 20 Blood Pressure Blood Pressure [Left Arm] Blood Pressure [Right Arm] 132/65 O2 Sat by Pulse Oximetry 94 L 97 Oxygen Delivery Method Nasal Cannula Nasal Cannula Oxygen Flow Rate 3 2 FIO2% 04/12/25 20:00 04/12/25 21:30 04/12/25 21:32 Temperature 98.9 F Pulse Rate 73 Pulse Rate [Apical] 89 Respiratory Rate 20 Blood Pressure Blood Pressure [Left Arm] 127/88 Blood Pressure [Right Arm] O2 Sat by Pulse Oximetry 98 99 Oxygen Delivery Method Room Air Nasal Cannula Oxygen Flow Rate 3 FIO2% 32 04/13/25 00:00 04/13/25 00:37 04/13/25 01:37 Temperature 99.4 F Pulse Rate Pulse Rate [Apical] 77 Respiratory Rate 20 20 18 Blood Pressure Blood Pressure [Left Arm] 123/84 Blood Pressure [Right Arm] O2 Sat by Pulse Oximetry 99 Oxygen Delivery Method Oxygen Flow Rate FIO2% 04/13/25 03:26 04/13/25 05:08 04/13/25 07:00 Temperature 99.0 F Pulse Rate 78 Pulse Rate [Apical] 76 Respiratory Rate 18 Blood Pressure Blood Pressure [Left Arm] Blood Pressure [Right Arm] 119/61 O2 Sat by Pulse Oximetry 99 97 Oxygen Delivery Method Room Air Nasal Cannula Oxygen Flow Rate 2 FIO2% 04/13/25 08:00 04/13/25 08:36 Temperature 98.2 F Pulse Rate Pulse Rate [Apical] 75 Respiratory Rate 19 Blood Pressure Blood Pressure [Left Arm] Blood Pressure [Right Arm] 125/87 O2 Sat by Pulse Oximetry 98 Oxygen Delivery Method Room Air Nasal Cannula Oxygen Flow Rate 3 FIO2% 32 Labs: Laboratory Last Values WBC 13.1 X10^3/uL (3.6-10.0) H 04/13/25 04:25 RBC 3.77 X10^6/uL (4.7-6.0) L 04/13/25 04:25 Hgb 10.9 g/dL (13.5-18.0) L 04/13/25 04:25 Hct 32.5 % (42.0-54.0) L 04/13/25 04:25 MCV 86.2 fL (80.0-100.0) 04/13/25 04:25 MCH 29.0 pg (27.0-34.0) 04/13/25 04:25 MCHC 33.7 g/dL (33.0-35.0) 04/13/25 04:25 RDW 16.6 % (11.6-16.5) H 04/13/25 04:25 Plt Count 353 X10^3/uL (150.0-450.0) 04/13/25 04:25 Plt Count Comment Adequate (ADEQUATE) 04/08/25 05:36 MPV 9.3 fL (7.4-11.0) 04/13/25 04:25 Neut % (Auto) 65.6 % (42.0-75.0) 04/13/25 04:25 Lymph % (Auto) 15.3 % (21.0-51.0) L 04/13/25 04:25 Mayes % (Auto) 17.4 % (0.0-13.0) H 04/13/25 04:25 Eos % (Auto) 1.3 % (0.9-2.9) 04/13/25 04:25 Baso % (Auto) 0.4 % (0.2-1.0) 04/13/25 04:25 Neut # (Auto) 8.6 x10^3/uL (2.2-4.8) H 04/13/25 04:25 Lymph # (Auto) 2.0 X10^3/uL (1.3-2.9) 04/13/25 04:25 Mayes # (Auto) 2.3 x10^3/uL (0.3-0.8) H 04/13/25 04:25 Eos # (Auto) 0.2 x10^3/uL (0.0-0.2) 04/13/25 04:25 Baso # (Auto) 0.1 X10^3/uL (0.0-0.1) 04/13/25 04:25 Absolute Nucleated RBC 0.1 /100WBC 04/13/25 04:25 Plt Clumps, EDTA Few 04/08/25 05:36 Plt Morphology Comment Normal (NORMAL) 04/08/25 05:36 RBC Morphology Normal (NORMAL) 04/08/25 05:36 D-Dimer 5.23 ug/ml (0.0-0.57) H 04/12/25 10:10 Sample Site Rrad 04/12/25 11:28 ABG pH 7.510 (7.35-7.45) H 04/12/25 11:28 ABG pCO2 38.0 mmHg (35.0-45.0) 04/12/25 11:28 ABG pO2 48.0 mmHg (80.0-100.0) L* 04/12/25 11:28 ABG HCO3 30.3 mmol/L (22-26) H* 04/12/25 11:28 ABG O2 Saturation 88.0 % (90-100) L 04/12/25 11:28 ABG Base Excess 6.9 mmol/L (-2.0-2.0) H 04/12/25 11:28 Freddy Test Pos 04/12/25 11:28 A-a Gradient 54.0 mmHg 04/12/25 11:28 FiO2 21.0 04/12/25 11:28 Blood Gas Comments Pt lucía well elj 04/12/25 11:28 Sodium 138 mmol/L (136-145) 04/13/25 04:25 Corrected Sodium 139 mmol/L (136-145) 04/13/25 04:25 Potassium 3.5 mmol/L (3.5-5.1) 04/13/25 04:25 Chloride 102 mmol/L (98-107) 04/13/25 04:25 Carbon Dioxide 29.1 mmol/L (21-32) 04/13/25 04:25 BUN 13 mg/dL (7-18) 04/13/25 04:25 Creatinine 0.67 mg/dL (0.70-1.30) L 04/13/25 04:25 Est GFR (MDRD) Af Amer > 60 (>60) 04/13/25 04:25 Est GFR (MDRD) Non-Af > 60 (>60) 04/13/25 04:25 Glucose 135 mg/dL (65-99) H 04/13/25 04:25 POC Glucose (mg/dL) 119 mg/dL (65-99) H 04/13/25 05:44 Calcium 9.6 mg/dL (8.5-10.1) 04/13/25 04:25 Corrected Calcium 11.0 mg/dL (8.5-10.1) H 04/13/25 04:25 Magnesium 1.7 mg/dL (2.0-2.9) L 04/13/25 04:25 Total Bilirubin 0.40 mg/dL (0.2-1.0) 04/13/25 04:25 AST 40 Units/L (15-37) H 04/13/25 04:25 ALT 41 Units/L (12-78) 04/13/25 04:25 Alkaline Phosphatase 52 Units/L (46-116) 04/13/25 04:25 Total Protein 6.5 g/dL (6.4-8.2) 04/13/25 04:25 Albumin 2.2 g/dL (3.4-5.0) L 04/13/25 04:25 Globulin 4.3 g/dL (2.5-4.5) 04/13/25 04:25 Albumin/Globulin Ratio 0.5 Ratio (1.1-2.1) L 04/13/25 04:25 Amylase 76 Units/L (25-115) 04/08/25 00:55 Lipase 69 Units/L (16-77) 04/08/25 00:55 Specimen Type Clean catch urine 04/08/25 00:58 Urine Color Yellow (YELLOW) 04/08/25 00:58 Urine Appearance Clear (CLEAR) 04/08/25 00:58 Urine pH 5.0 (5.0 - 8.0) 04/08/25 00:58 Ur Specific [place] 1.020 (1.000-1.030) 04/08/25 00:58 Urine Protein Negative (NEGATIVE) 04/08/25 00:58 Urine Glucose (UA) Negative (NEGATIVE) 04/08/25 00:58 Urine Ketones Negative (NEGATIVE) 04/08/25 00:58 Urine Blood Negative (NEGATIVE) 04/08/25 00:58 Urine Nitrite Negative (NEGATIVE) 04/08/25 00:58 Urine Bilirubin Negative (NEGATIVE) 04/08/25 00:58 Urine Urobilinogen Normal (NORMAL) 04/08/25 00:58 Ur Leukocyte Esterase Negative (NEGATIVE) 04/08/25 00:58 Resp Viral Panel (PCR) See scanned report 04/10/25 20:07 Tissue Pathology See comment. 04/08/25 10:48 Reason For Visit: APPENDICITIS Discharge Diagnosis All Active Problems (Updated 04/11/25 @ 10:32 by Annemarie Handley MD) Hypomagnesemia (Acute) Post-op pneumonia (Acute) Acute appendicitis (Acute) Preoperative clearance (Acute) Type 2 diabetes mellitus (Chronic) DDD (degenerative disc disease), lumbar (Chronic) Acute gout (Acute) Hypokalemia (Acute) Left knee sprain (Acute) Gout attack (Acute) Laceration of scalp (Acute) Sprain of left foot (Acute) Hypertension (Acute) Contusion of scalp (Acute) Abdominal pain (Acute) Hematuria (Acute) UTI (urinary tract infection) (Acute) Contusion of scalp (Acute) Arm pain (Acute) Toe fracture, right (Acute) Contusion of foot, right (Acute) Status post left hip replacement (Acute) Abdominal pain in male (Acute) Gastritis (Acute) Right renal stone (Acute) Hyperglycemia (Acute) Diverticulosis of colon (Acute) Abnormal liver enzymes (Acute) Hepatic steatosis (Acute) Acute UTI (Acute) Stenosis of left iliac artery (Acute) Elevated liver enzymes (Acute) Acute cholecystitis (Acute) Plan of Treatment: Continue with present treatment and follow up plan. Pt is to keep follow up appointment as instructed and take medications as ordered. Discharge Medications Discharge Medications: Sulfa (Sulfonamide Antibiotics) (SULFA) Allergy (Unknown, Verified 02/09/25 10:52) CONTINUE taking the following medications abacavir 600 mg-dolutegravir 50 mg-lamivudine 300 mg tablet (Triumeq) 1 tab PO QAM 04/08/25 [History] alirocumab 150 mg/mL subcutaneous pen injector (Praluent Pen) mg subcut 04/08/25 [History] dulaglutide 1.5 mg/0.5 mL subcutaneous pen injector (Trulicity) mg subcut 04/08/25 [History] abacavir 600 mg-dolutegravir 50 mg-lamivudine 300 mg tablet (Triumeq) 1 tab PO QDAY 04/10/25 [History] New Prescriptions albuterol sulfate 90 mcg/actuation aerosol inhaler (Ventolin HFA) 2 puff inhalation Q6H PRN #6.7 grams 04/13/25 [Rx] levofloxacin 750 mg tablet 750 mg PO QDAY 7 days #7 tabs 04/13/25 [Rx] Discharge Disposition Discharge Disposition: to home with home health Discharge Condition: stable Discharge Plan Discharge Plan Hospital Course: Patient is a 64-year-old male with past medical history of HIV, degenerative disc disease, hypertension, type 2 diabetes mellitus, presenting with severe right lower quadrant pain that started in the morning. Reports having some loose stools over the past few days. Denies any fevers or chills. Reports that pain is persistent. Labs/imaging: WBC 12.7, hemoglobin 13.4, platelets 196, sodium 144, potassium 4.4, creatinine 0.81, glucose 144, UA negative, CT abdomen pelvis was obtained that revealed an acute appendicitis. Chest x-ray revealed some volume overload. Patient was admitted for acute appendicitis. He was started on IV antibiotic Zosyn. He was kept n.p.o. and general surgery was consulted. He underwent surgery without any complications. His labs were monitored daily and electrolytes replaced as needed. He did have a ANA drain postprocedure. He remained on IV antibiotics and pain control. His diet was advanced as tolerated. He was noted to have some shortness of breath and cough. Chest x-ray revealed pneumonia. All cultures were negative. He was requiring 3 L nasal cannula. Patient's D-dimer was elevated, CTA was done which did not show PE but did show right basilar pneumonia. He did require home oxygen on ambulation. He was stable for discharge on p.o. antibiotics. He will follow-up with PCP and surgery as scheduled. Patient Disposition: HOME HEALTH SERVICE Condition: Stable Health Concerns: Post Hospitalization: new medications and changes needed to prevent readmission or further decline. Pt educated and given instructions on all concerns. Care Plan Goals: Problem: Pain/Alteration in Comfort Goal: Improve/ Resolve Pain; Achieve Pain Tolerance Instructions: Take pain medications as prescribed. Contact your primary care provider if your pain is unrelieved or worsens. Follow up with primary care provider as directed. Plan of Treatment: Continue with present treatment and follow up plan. Pt is to keep follow up appointment as instructed and take medications as ordered. Prescription drug monitoring program results: PDMP reviewed and no concerns identified Prescriptions: New levofloxacin 750 mg tablet 750 mg PO QDAY 7 Days Qty: 7 0RF albuterol sulfate [Ventolin HFA] 90 mcg/actuation HFA aerosol inhaler 2 puff inhalation Q6H PRNQty: 6.7 0RF Continued fenofibrate nanocrystallized 145 mg tablet 145 mg PO QDAY labetalol 200 mg tablet 200 mg PO BID folic acid 1 mg tablet 1 mg PO QAM cholecalciferol (vitamin D3) 1,250 mcg (50,000 unit) capsule 1,250 mcg PO QWEEK chlorthalidone 25 mg tablet 25 mg PO QDAY nifedipine 60 mg tablet extended release 24hr 60 mg PO QPM glyburide 5 mg tablet 5 mg PO BID (DME) BD Luer-Ran Syringe 3 mL 25 gauge x 1" syringe See Rx Instructions .ROUTE DIRECTED Qty: 1 Rx Instructions: As directed hydrocodone-acetaminophen 10-325 mg tablet 1 tab PO BID MDD 2 PRN (Reason: pain) 30 Days Qty: 60 0RF Triumeq 600-50-300 mg tablet 1 tab PO QAM Trulicity 1.5 mg/0.5 mL pen injector SUBCUT Patient Comments: [NO ORIGINAL SIG] Praluent Pen 150 mg/mL pen injector SUBCUT Patient Comments: [NO ORIGINAL SIG] Triumeq 600-50-300 mg tablet 1 tab PO QDAY olmesartan [Benicar] 40 mg tablet 40 mg PO QAM Patient Comments: TAKE 1 TABLET BY MOUTH ONCE DAILY Follow ups/Referrals Follow ups/Referrals: CARMITA NORRIS [STAFF PHYSICIAN, MEDICAL] - 04/21/25 10:45 am Instructions Instructions: Home Oxygen Use, Adult, Laparoscopic Appendectomy, Adult, Care After, [id number], Laparoscopic Appendectomy, Adult, Hospital-Acquired Pneumonia, Appendicitis, Adult, [id number] Stand Alone Forms: Find Help Web Site, Post Hospital Follow Up Care Print Language: GERMAN
== END 2025-04-13 14:35 | disposition home health service (06) | DRG 397 ==
LOC: ER 00:18 → MED/SURG 00:18 → OBSVTOIN 03:04 → MED/SURG 03:54
PROVIDERS: ADMIT Family Medicine; ATTEND Family Medicine
PROC: APPYLAP (ICD-10-PCS; 2025-04-08 10:15)
DX: R19.7 Diarrhea, unspecified; D64.89 Other specified anemias; J95.89 Other postprocedural complications and disorders of respiratory system, not elsewhere classified; E83.42 Hypomagnesemia; E11.65 Type 2 diabetes mellitus with hyperglycemia; J18.8 Other pneumonia, unspecified organism; B20 Human immunodeficiency virus [HIV] disease; R00.1 Bradycardia, unspecified; D72.828 Other elevated white blood cell count; R10.31 Right lower quadrant pain; E87.6 Hypokalemia; F32.89 Other specified depressive episodes; Z01.810 Encounter for preprocedural cardiovascular examination; M51.362 Other intervertebral disc degeneration, lumbar region with discogenic back pain and lower extremity pain; K57.30 Diverticulosis of large intestine without perforation or abscess without bleeding; R06.02 Shortness of breath; E78.1 Pure hyperglyceridemia; K42.9 Umbilical hernia without obstruction or gangrene; K66.0 Peritoneal adhesions (postprocedural) (postinfection); K35.32 Acute appendicitis with perforation, localized peritonitis, and gangrene, without abscess; I10 Essential (primary) hypertension; R79.1 Abnormal coagulation profile